=== PATIENT | female | born 1975 | race Caucasian/White ===

== ENCOUNTER 2020-05-07 14:00 | Outpatient (RCR) | payer OTHER, SELFPAY | END 2020-05-09 23:55 | disposition home or self-care (01) | LOC: HO.PAOS 14:00 | PROVIDERS: Visit Provider Counselor Mental Health | DX: F33.1 Major depressive disorder, recurrent, moderate (principal); F90.2 Attention-deficit hyperactivity disorder, combined type; F60.3 Borderline personality disorder | CPT/HCPCS: 90834 ==

== ENCOUNTER → 2020-08-16 09:02 | Outpatient (BNVA) | payer OTHER, SELFPAY | PROVIDERS: PCP Internal Medicine; Visit Provider Nurse Practitioner Family | DX: M54.16 Radiculopathy, lumbar region (principal); G90.50 Complex regional pain syndrome I, unspecified | CPT/HCPCS: 99202 ==

== ENCOUNTER 2020-08-16 10:59 | Outpatient (REF) | payer OTHER, SELFPAY ==
[2020-08-16 13:39] LABS: MANUAL DIFF FLAG NO
[2020-08-16 13:41] LABS: Basophils Percent Auto 0.3 % (0-2); Eosinophils Percent Auto 0.1 % (0-4); Hematocrit 40.2 % (37-47); Hemoglobin 13.9 g/dl (12.0-16.0); Imm Gran Abs Auto 0.02 X10*3/uL (0.00-0.03); Imm Gran Pct Auto 0.2 % (0.0-0.4); Lymphocytes Absolute Auto 3.1 X10*3/uL (1.2-4.9); Lymphocytes Percent Auto 31.4 % (20-40); Mean Corpuscular HGB Conc 34.6 g/dl (31.0-35.0); Mean Corpuscular Hemoglobin 31.7 pg (27.0-33.0); Mean Corpuscular Volume 91.6 fL (80-98); Mean Platelet Volume 9.4 fL (9.4-12.3); Monocytes Absolute Auto 0.6 X10*3/uL (0.1-1.2); Monocytes Percent Auto 5.9 % (2-11); Neutrophils Absolute Auto 6.1 X10*3/uL (2.0-8.3); Neutrophils Percent Auto 62.1 % (45-73); Platelet Count 335 X10*3/uL (160-400); Red Blood Count 4.39 X10*6/uL (4.20-5.50); White Blood Count 9.8 X10*3/uL (4.8-10.8)
[2020-08-16 14:08] LABS: Glucose Urine UA NEG (NEG); Leukocyte Esterase Urine NEG (NEG); Nitrite Urine NEG (NEG); PH 6.5 (5.0-8.0); Urine Blood TRACE (NEG); Urine Ketones 5 MG/DL (NEG); Urine Protein NEG (NEG-TRACE)
[2020-08-16 14:16] LABS: Alanine Aminotransferase 14 U/L (0-31); Albumin Level 5.1 g/dL (3.5-5.0); Alkaline Phosphatase 50 U/L (39-117); Anion Gap 16 (12-20); Aspartate Amino Transferase 15 U/L (5-31); Bilirubin Total 0.8 mg/dL (0.0-1.0); Blood Urea Nitrogen 10 mg/dL (9-16); Calcium 9.6 mg/dL (8.4-10.2); Carbon Dioxide 25 mmol/L (22-29); Chloride 102 mmol/L (96-108); Estimated Glomerular Filt Rate > 60; Glucose Random 104 mg/dL (60-115); Potassium 3.8 mmol/L (3.3-5.1); Sodium 139 mmol/L (135-145); Total Protein 7.5 g/dL (6.5-8.0)
[2020-08-16 14:17] LABS: Appearance Urine HAZY; Color Urine YELLOW
[2020-08-16 14:40] LABS: Vitamin B12 491 pg/mL (200-900)
[2020-08-16 14:42] LABS: Squamous Epithelial Cell Urine 1+ /LPF; WBC Urine 0-2 /HPF (0-4)
== END 2020-08-16 11:00 | disposition home or self-care (01) ==
LOC: HO.10HDL 10:59
PROVIDERS: Visit Provider Internal Medicine
DX: E53.8 Deficiency of other specified B group vitamins (principal); Z87.442 Personal history of urinary calculi
CPT/HCPCS: 36415; 80053; 81001; 81003; 82607; 85025

== ENCOUNTER 2020-09-10 06:27 | Outpatient (REF) | payer OTHER, SELFPAY ==
--- NOTE | ~2020-09-10 | FL_ITS ---
EXAMINATION: XR FLUOROSCOPY WITH IMAGES CLINICAL INFORMATION: 54.16 - Radiculopathy, lumbar region COMPARISON: MRI lumbar spine 02/13/2020, CT abdomen and pelvis 02/13/2020 TECHNIQUE: Fluoroscopy performed by Kandis Fisher NP. Fluoroscopy time: 0.6 minutes DAP: 1.83 Gycm2 Images: 2 FINDINGS: There is a spinal needle overlying the outer aspect right L5-S1 neural foramen. There is contrast in the nerve sheaths with transforaminal epidural extension. Numerous metallic spring tacks overlie the abdomen from prior ventral hernia repair with mesh. FL/FL guidance in treatment room IMPRESSION: Fluoroscopy for pain management procedure.
== END 2020-09-10 06:28 | disposition home or self-care (01) ==
LOC: HO.RADIR 06:27
PROVIDERS: Visit Provider Anesthesiology
DX: M54.16 Radiculopathy, lumbar region (principal); G90.50 Complex regional pain syndrome I, unspecified
CPT/HCPCS: 64483; J3300; Q9967

== ENCOUNTER → 2020-10-14 10:31 | Outpatient (BNVA) | payer OTHER, SELFPAY | PROVIDERS: PCP Internal Medicine; Visit Provider Anesthesiology | DX: M79.676 Pain in unspecified toe(s) (principal) | CPT/HCPCS: 99211 ==

== ENCOUNTER → 2020-11-04 10:50 | Outpatient (BNVA) | payer OTHER, SELFPAY | PROVIDERS: PCP Internal Medicine; Visit Provider Anesthesiology | DX: M54.16 Radiculopathy, lumbar region (principal); G90.50 Complex regional pain syndrome I, unspecified | CPT/HCPCS: 99212 ==

== ENCOUNTER 2020-11-23 00:23 | Emergency (ER) | payer OTHER, SELFPAY ==
[2020-11-23 00:34] VITALS: BP 136/72; PULSE 94; RESP 18; TEMP 36.8; O2SAT 96; BMI 24.7
[2020-11-23] MEDS: Diphth,Pertus(ACell),Tet Adult 0.5 ML SYRINGE IM (01:00)
--- NOTE | 2020-11-23 01:16 | ED.WOUNDLAC ---
HPI - Wound/Laceration General Chief Complaint: Wound/Laceration Stated Complaint: Laceration Time Seen by Provider: 11/23/20 00:49 Source: patient Mode of arrival: ambulatory Limitations: no limitations History of Present Illness HPI narrative: States she was cleaning ceramic tile floor and caused injury bilateral hands from scrubbing Tool. Onset (ago): minute(s) Extremity Location: right: hand Place: home Patient tetanus UTD: No Related Data Home Medications Medication Instructions Recorded Confirmed biotin 10,000 mcg capsule 10,000 mcg PO DAILY cap 08/16/20 10/14/20 clonazepam 0.5 mg tablet 0.5 mg PO TID PRN 08/16/20 10/14/20 dextroamphetamine-amphetamine 20 1 tab PO TID 08/16/20 10/14/20 mg tablet diphenhydramine 25 2 tab PO BEDTIME PRN 08/16/20 10/14/20 mg-acetaminophen 500 mg tablet gabapentin 300 mg capsule 300 mg PO DAILY 08/16/20 10/14/20 melatonin 5 mg capsule 5 mg PO .hs cap 08/16/20 10/14/20 vortioxetine 20 mg tablet 20 mg PO QAM 08/16/20 10/14/20 Previous Rx's Medication Instructions Recorded tizanidine 4 mg tablet 4 mg PO TID PRN #90 tab 11/04/20 Allergies Allergy/AdvReac Type Severity Reaction Status Date / Time Sulfa (Sulfonamide Allergy Intermediate HIVES Unverified 11/23/20 00:37 Antibiotics) [SULFA (SULFONAMIDE ANTIBIOTICS)] erythromycin base Allergy Mild HIVES Unverified 11/23/20 00:37 [Erythromycin Base] lamotrigine [From Lamictal] Allergy Mild BLISTERS Unverified 11/23/20 00:37 latex [Latex] Allergy Mild HIVES Unverified 11/23/20 00:37 strawberry [STRAWBERRY] Allergy Unknown HIVES, Unverified 11/23/20 00:37 TONGUE SWELLS nortriptyline AdvReac Severe tachycardia Verified 11/23/20 00:37 Review of Systems Review of Systems: Otherwise 12 point review of system is negative Yes all other systems are reviewed and are negative PMFSH Social History Social History Advance Directives: Yes Advance Directives on File: No Patient : No Physical Exam Vital Signs: Vital Signs: Last Vital Signs Temp 98 F 11/23/20 01:40 Pulse 70 11/23/20 01:40 Resp 16 11/23/20 01:40 BP 127/70 11/23/20 01:40 Pulse Ox 98 11/23/20 01:40 Body Mass Index 24.7 Reviewed Const: General: cooperative and healthy appearing; No acute distress or intoxicated appearing Nutritional Appearance: average body habitus Orientation/consciousness: patient oriented x3 Eyes: General: appearance normal, both eyes and all related structures Visual Jade: normal visual jade by confrontation Skin: General skin exam: no rashes or lesions noted Neuro: General: patient oriented x3 Extrem: General: Yes normal to inspection Hand/finger images: 1. Small friction type abrasion 2. Small friction type abrasion Course Course Course Narrative: Given tetanus vaccination per request. Otherwise home care for abrasion return follow-up instructions provided. Stable for discharge. Discharge Plan Discharge Clinical Impression: Abrasion Patient Disposition: Home, Self-Care Instructions: Abrasion (ED), Tetanus (ED) Prescriptions: No Action clonazepam 0.5 mg tablet 0.5 mg PO TID PRNRF: 0 dextroamphetamine-amphetamine 20 mg tablet 1 tab PO TID RF: 0 Trintellix 20 mg tablet 20 mg PO QAM RF: 0 gabapentin 300 mg capsule 300 mg PO DAILY RF: 0 biotin 10,000 mcg capsule 10,000 mcg PO DAILY RF: 0 diphenhydramine-acetaminophen [Tylenol PM Extra Strength] 25-500 mg tablet 2 tab PO BEDTIME PRNRF: 0 melatonin 5 mg capsule 5 mg PO .hs RF: 0 tizanidine 4 mg tablet 4 mg PO TID PRN (Reason: muscle spasticity) Qty: 90 RF: 12 Referrals: John Gil MD [Primary Care Provider] - 1 week Discharge Date/Time: 11/23/20 01:41
[2020-11-23 01:40] VITALS: BP 127/70; PULSE 70; RESP 16; TEMP 36.6; O2SAT 98
== END 2020-11-23 01:41 | disposition home or self-care (01) ==
PROVIDERS: Emergency Provider Emergency Medicine; PCP Internal Medicine
DX: S60.512A Abrasion of left hand, initial encounter (principal); S60.511A Abrasion of right hand, initial encounter; W27.8XXA Contact with other nonpowered hand tool, initial encounter; Y93.9 Activity, unspecified; Y92.9 Unspecified place or not applicable; Y99.9 Unspecified external cause status
CPT/HCPCS: 90471; 90715; 99283; 99284

== ENCOUNTER 2021-03-12 14:00 | Outpatient (RCR) | payer OTHER, SELFPAY ==
--- NOTE | 2021-02-12 15:22 | MHC.PT.EP ---
[facility] [place] Office [place] Office [address] Joseph Kyle [address] [phone] F: [phone] F: [phone] F: [phone] F: [phone] Physical Therapy Plan of Care Date of Evaluation: Date of Surgery: Diagnosis: CRPS, lumbar radiculopathy Assessment: The patient was a wonderful historian and described a complicated medical history in the last 3 years. She arrived today with decreased ROM in right ankle and foot, CRPS in right foot, and back pain. She has a history of weakness in her core due to several abdominal surgeries. The patient suffers from severe mental health issues such as anxiety and depression and she is being followed by a Psychiatrist and Mental Health Counselor. The patient will benefit from skilled PT to address, LE weakness, lack of proprioception, balance, core strength, postural awareness, to improve body mechanics, and lifting mechanics to help her with independent living. Frequency and Duration: The patient will be seen 2x/week x 4 weeks. Short Term Goals: 2 weeks 1.Pt to able to demonstrate proper sitting posture with the use of a lumbar roll to decrease aggravating factors. 2.Pt to be able to demonstrate proper posture for common leisure activities such as phone/tablet use. 3.For the patient to demonstrate proper upright sitting posture with use of the lumbar roll to improve compliance and carryover. 4. pt to tolerate light touch of cloth on her right lateral lower leg and foot. Mcc Goals: 1. Pt to be able to wear a textured sock without any pain 2. Pt to be able walk with a heel to toe reciprocal gait pattern without compensation 3. Pt to be able to perform functional lifting tasks without limitation and pain. 4. Pt to be able to do all ADL's independently Treatment Plan: Modalities to reduce pain, spasms and effusion. Manual therapy to restore motion and function. Therapeutic exercise to improve strength and flexibility. Neuromuscular re-education for posture and balance. Therapeutic activities to return to functional activities of daily living. Electronically signed by: Karen Calabrese PT DPT Please sign and return to therapist. Thank you for your referral.
== END 2021-03-14 08:00 | disposition home or self-care (01) ==
LOC: HO.PT 14:00
PROVIDERS: PCP Internal Medicine; Visit Provider Anesthesiology
DX: G90.50 Complex regional pain syndrome I, unspecified (principal); M54.16 Radiculopathy, lumbar region
CPT/HCPCS: 97110; 97112; 97140; 97163

== ENCOUNTER → 2021-04-09 15:57 | Outpatient (BNVA) | payer OTHER, SELFPAY | PROVIDERS: PCP Internal Medicine; Visit Provider Anesthesiology | DX: M54.16 Radiculopathy, lumbar region (principal); G90.50 Complex regional pain syndrome I, unspecified; Z91.040 Latex allergy status; Z88.2 Allergy status to sulfonamides; Z88.8 Allergy status to other drugs, medicaments and biological substances; Z91.018 Allergy to other foods; Z79.899 Other long term (current) drug therapy | CPT/HCPCS: 99212 ==

== ENCOUNTER 2021-05-19 12:53 | Outpatient (REF) | payer OTHER, SELFPAY ==
[2021-05-19 14:52] LABS: Appearance Urine HAZY; Color Urine YELLOW; Glucose Urine UA NEG (NEG); Leukocyte Esterase Urine NEG (NEG); Nitrite Urine NEG (NEG); PH 6.5 (5.0-8.0); Urine Blood NEG (NEG); Urine Ketones NEG (NEG); Urine Protein NEG (NEG-TRACE)
[2021-05-19 14:53] LABS: MANUAL DIFF FLAG NO
[2021-05-19 14:59] LABS: Basophils Absolute Auto 0.1 X10*3/uL (0.0-0.2); Basophils Percent Auto 0.5 % (0-2); Eosinophils Percent Auto 0.4 % (0-4); Hematocrit 40.8 % (37.0-47.0); Hemoglobin 13.7 g/dl (12.0-16.0); Imm Gran Abs Auto 0.02 X10*3/uL (0.00-0.03); Imm Gran Pct Auto 0.2 % (0.0-0.4); Lymphocytes Absolute Auto 2.9 X10*3/uL (1.2-4.9); Lymphocytes Percent Auto 30.2 % (20-40); Mean Corpuscular HGB Conc 33.6 g/dl (31.0-35.0); Mean Corpuscular Hemoglobin 31.4 pg (27.0-33.0); Mean Corpuscular Volume 93.6 fL (80.0-98.0); Mean Platelet Volume 8.9 fL (9.4-12.3); Monocytes Absolute Auto 0.5 X10*3/uL (0.1-1.2); Monocytes Percent Auto 5.7 % (2-11); Platelet Count 409 X10*3/uL (160-400); Red Blood Count 4.36 X10*6/uL (4.20-5.50); Red Cell Distribution Width 12.1 % (11.0-16.0); White Blood Count 9.5 X10*3/uL (4.8-10.8)
[2021-05-19 15:23] LABS: Alanine Aminotransferase 23 U/L (0-31); Albumin Level 4.8 g/dL (3.5-5.0); Alkaline Phosphatase 57 U/L (39-117); Anion Gap 15 (12-20); Aspartate Amino Transferase 19 U/L (5-31); Bilirubin Total 0.4 mg/dL (0.0-1.0); Blood Urea Nitrogen 11 mg/dL (9-16); C Reactive Protein 0.39 mg/dL (< or = 0.50); Calcium 9.8 mg/dL (8.4-10.2); Carbon Dioxide 23 mmol/L (22-29); Chloride 104 mmol/L (96-108); Cholesterol 245 mg/dL; Estimated Glomerular Filt Rate > 60; Glucose Random 99 mg/dL (60-115); HDL Cholesterol 51 mg/dL; LDL Cholesterol Calculated 165 mg/dl; Potassium 4.3 mmol/L (3.3-5.1); Sodium 138 mmol/L (135-145); Total Protein 7.7 g/dL (6.5-8.0); Triglycerides 146 mg/dL
[2021-05-19 15:52] LABS: Vitamin B12 664 pg/mL (200-900)
== END 2021-05-19 12:54 | disposition home or self-care (01) ==
LOC: HO.10HDL 12:53
PROVIDERS: Visit Provider Internal Medicine
DX: M54.10 Radiculopathy, site unspecified (principal); Z87.442 Personal history of urinary calculi
CPT/HCPCS: 36415; 80053; 80061; 81003; 82607; 85025; 86140; 87086

== ENCOUNTER 2021-12-11 22:43 | Emergency (ER) | payer MEDICARE, MEDICAID, SELFPAY ==
--- NOTE | ~2021-12-11 | CT_ITS ---
EXAMINATION: CT abdomen pelvis wo con CLINICAL INFORMATION: Reason for Exam left side abd pain COMPARISON: No prior CT available for comparison. TECHNIQUE: Multidetector volumetric imaging was performed from the superior aspect of the liver through the pubic symphysis , noncontrasted study. Sagittal and coronal reformatted images were obtained on the technologist's workstation. This CT examination was performed using dose optimization techniques as appropriate, variously including the following: *Automated exposure control *Adjustment of mA and/or kV according to patient size (this includes techniques or standardized protocols for targeted exams where dose is matched to indication/reason for exam; i.e. extremities or head) *Use of iterative reconstruction technique DLP: 434 mGy-cm FINDINGS: LOWER THORAX: Included lung bases are clear. HEPATOBILIARY: Small cyst in the right lobe of the liver measure 0.9 cm. Evaluation of the liver is limited on a noncontrasted study. GALLBLADDER: Gallbladder unremarkable. SPLEEN: Spleen is normal in size. PANCREAS: No focal mass or ductal dilatation. STOMACH AND GASTROINTESTINAL TRACT: Stomach is grossly unremarkable. Anastomosis line in the sigmoid colon probably prior partial resection. Evaluation of the bowel is limited on this noncontrasted study, no evidence of obstruction. No CT evidence of appendicitis. ADRENALS: No adrenal nodules. KIDNEYS/URETERS: There is left renal hydronephrosis, transition of the ureteropelvic junction, no calcified obstructing stone found. This could be congenital, or due to crossing vessel slightly more prominent than previously seen on prior CT scan from 02/13/2020, no obstructing stone found. There is nonobstructing 5 mm stone lower calyx left kidney. There is nonobstructing 1 mm stone right kidney. Perinephric fat are clear. URINARY BLADDER: Urinary bladder evaluation is limited, the bladder is partially decompressed unopacified. No stones in the bladder. PELVIC VISCERA: There are pelvic vascular calcification phleboliths. There is a fluid-filled cystic structure in the right adnexa probably ovarian cyst 3.8 x4.5 cm cm. PERITONEUM: No free air or fluid. LYMPH NODES: No lymphadenopathy. VASCULAR:Abdominal aorta normal in size, no aneurysm found. BONES, ABDOMINAL WALL AND SOFT TISSfacet joints arthropathy and degenerative disc disease lower lumbar spine, grade 1 anterior spondylolisthesis of L5 on S1, postsurgical changes anterior abdominal wall hernia repair. CT/CT abdomen pelvis wo con IMPRESSION: *Fullness of the left renal pelvis, mild left renal hydronephrosis slightly more prominent on today's exam with a transition at the UPJ, no obstructing stone found , this could be congenital, developmental or due to crossing vessel, probably chronic been present on prior CT exams. *There is 5 mm nonobstructing stone lower calyx left kidney, there is a tiny 1 mm stone right kidney. *There is a solid round 3.4 cm structure in the anterior pelvis right of midline, this exhibits intense enhancement on prior CT from January 2020 and has not changed, this may represent a pedunculated fibroid versus other soft tissue neoplasms. This been present on multiple prior CTs back to October 2018. Consider correlation with ultrasound for confirmation. *Other findings unchanged including an anastomosis line sigmoid colon, anterior abdominal wall hernia repair, pelvic right adnexal 4.5 cm cyst probably of right ovarian origin, small liver cyst, grade 1 anterior spondylolisthesis of L5 on S1, facet joints arthropathy and degenerative disc disease lower lumbar spine.
[2021-12-11 22:57] VITALS: BP 165/95; PULSE 85; RESP 16; TEMP 37.2; O2SAT 98; BMI 24.7
[2021-12-11 23:20] LABS: Basophils Percent Auto 0.2 % (0-2); Eosinophils Absolute Auto 0.2 X10*3/uL (0.0-0.4); Eosinophils Percent Auto 1.3 % (0-4); Hematocrit 39.1 % (37.0-47.0); Hemoglobin 13.2 g/dl (12.0-16.0); Imm Gran Abs Auto 0.05 X10*3/uL (0.00-0.03); Imm Gran Pct Auto 0.4 % (0.0-0.4); Lymphocytes Absolute Auto 3.2 X10*3/uL (1.2-4.9); Lymphocytes Percent Auto 26.5 % (20-40); MANUAL DIFF FLAG NO; Mean Corpuscular HGB Conc 33.8 g/dl (31.0-35.0); Mean Corpuscular Hemoglobin 30.6 pg (27.0-33.0); Mean Corpuscular Volume 90.7 fL (80.0-98.0); Mean Platelet Volume 8.7 fL (9.4-12.3); Monocytes Absolute Auto 0.8 X10*3/uL (0.1-1.2); Monocytes Percent Auto 6.6 % (2-11); Neutrophils Absolute Auto 7.9 x10*3/uL (2.0-8.3); Platelet Count 313 X10*3/uL (160-400); Red Blood Count 4.31 X10*6/uL (4.20-5.50); Red Cell Distribution Width 12.4 % (11.0-16.0); White Blood Count 12.2 X10*3/uL (4.8-10.8)
[2021-12-11 23:26] LABS: Appearance Urine CLEAR; Color Urine YELLOW; Glucose Urine UA NEG (NEG); Leukocyte Esterase Urine NEG (NEG); Nitrite Urine NEG (NEG); PH 6.5 (5.0-8.0); Specific Gravity - Urine 1.015 (1.005-1.025); Urine Blood NEG (NEG); Urine Ketones NEG (NEG); Urine Protein NEG (NEG-TRACE)
[2021-12-11 23:40] LABS: Alanine Aminotransferase 23 U/L (0-31); Albumin Level 4.9 g/dL (3.5-5.0); Alkaline Phosphatase 53 U/L (39-117); Anion Gap 14 (12-20); Aspartate Amino Transferase 17 U/L (5-31); Bilirubin Direct 0.2 mg/dL (0.0-0.5); Bilirubin Total 0.5 mg/dL (0.0-1.0); Blood Urea Nitrogen 19 mg/dL (9-16); Calcium 9.6 mg/dL (8.4-10.2); Carbon Dioxide 26 mmol/L (22-29); Chloride 102 mmol/L (96-108); Creatinine Clr Calc Pharmacy 73.7; Estimated Glomerular Filt Rate > 60; Glucose Random 104 mg/dL (60-115); Lipase 21 U/L (8-78); Potassium 3.9 mmol/L (3.3-5.1); Sodium 138 mmol/L (135-145); Total Protein 7.4 g/dL (6.5-8.0)
--- NOTE | 2021-12-12 06:58 | ED.ABDPAIN ---
HPI - Abdominal Pain General Chief Complaint: Abdominal Pain Stated Complaint: ? kidney infection Time Seen by Provider: 12/12/21 05:32 Source: patient Mode of arrival: ambulatory Limitations: no limitations History of Present Illness HPI narrative: 46-year-old female came in for evaluation of left-sided abdominal pain. Pain started since Wednesday 7 days ago, pain started to the left flank then became to the bilateral flank area now is localized to the left flank, radiates to the left lower abdominal area, pain described as crampy and intermittent, pain is similar to patient's previous pain when she has a kidney stones, patient thought that is she is passing stones. Pain is associated with nausea and vomiting, normal bowel movement with passing gas, no aggravating factor, no relieving factors. No fever chills. Patient had a history of diverticular disease with perforated viscus require surgical colectomy and colostomy, patient states that her last bowel movement was this morning with normal passing flatus. Patient had a history of kidney stones and seems like kidney stones. Related Data Home Medications Medication Instructions Recorded Confirmed biotin 10,000 mcg capsule 10,000 mcg PO DAILY 08/16/20 04/09/21 clonazepam 0.5 mg tablet 0.5 mg PO TID PRN 08/16/20 04/09/21 dextroamphetamine-amphetamine 20 1 tab PO TID 08/16/20 04/09/21 mg tablet diphenhydramine 25 2 tab PO BEDTIME PRN 08/16/20 04/09/21 mg-acetaminophen 500 mg tablet (Tylenol PM Extra Strength) gabapentin 300 mg capsule 300 mg PO DAILY 08/16/20 04/09/21 melatonin 5 mg capsule 5 mg PO .hs 08/16/20 04/09/21 vortioxetine 20 mg tablet 20 mg PO QAM 08/16/20 04/09/21 Previous Rx's Medication Instructions Recorded tizanidine 4 mg tablet 4 mg PO TID PRN muscle spasticity 11/14/21 #90 tabs Allergies Allergy/AdvReac Type Severity Reaction Status Date / Time Sulfa (Sulfonamide Allergy Intermediate HIVES Unverified 04/09/21 17:00 Antibiotics) [SULFA (SULFONAMIDE ANTIBIOTICS)] erythromycin base Allergy Mild HIVES Unverified 04/09/21 17:00 [Erythromycin Base] lamotrigine [From Lamictal] Allergy Mild BLISTERS Unverified 04/09/21 17:00 latex [Latex] Allergy Mild HIVES Unverified 04/09/21 17:00 strawberry [STRAWBERRY] Allergy Unknown HIVES, Unverified 04/09/21 17:00 TONGUE SWELLS nortriptyline AdvReac Severe tachycardia Verified 04/09/21 17:00 Review of Systems Review of Systems All other systems are reviewed and are negative Constitutional: Reports as per HPI and Reports no additional constitutional complaints Eyes: Reports as per HPI and Reports no additional eye complaints Reports system reviewed and no additional complaints, except as documented Cardiovascular: Reports as per HPI and Reports no additional cardiovascular complaints Respiratory: Reports as per HPI and Reports no additional respiratory complaints Gastrointestinal: Reports as per HPI and Reports no additional gastrointestinal complaints Genitourinary: Reports no additional female genitourinary complaints Musculoskeletal: Reports no additional musculoskeletal complaints Skin/Breast: Reports system reviewed and no additional complaints, except as docu Psychiatric: Reports no additional psychiatric complaints Endocrine: Reports no additional endocrine complaints Hematologic/Lymphatic: Reports no additional hematologic/lymphatic complaints Allergic/Immunologic: Reports no additional allergic/immunologic complaints Reports system reviewed and no additional complaints, except as documented and Reports Abnormal speech present [facility] Social History Social History Advance Directives: No Physical Exam ED Vital Signs: Vital Signs - 24 hr 12/11/21 22:57 Temperature 98.9 F Pulse Rate 85 Respiratory Rate 16 Blood Pressure 165/95 H Pulse Oximetry 98 Oxygen Delivery Method Room Air BMI result Body Mass Index 24.7 Vital signs have been reviewed as appeared to be correct. Blood pressure normal. Heart rate normal. Respiration rate normal. Temperature normal. Oxygen saturation normal. Appearance: Alert. Oriented X3. No acute distress. Head: Normal external exam. Normocephalic. Atraumatic. No Kline signs noted. No raccoon eyes noted Eyes: PERRLA. EOMI. Conjunctiva and sclera normal. Eyelids normal. ENT: TM's Normal. Pharynx normal. Uvula midline. Moist mucous membranes. No trismus noted. No drooling noted. No muffled voice noted. Neck: Normal inspection. Neck supple. FROM. No adenopathy. Thyroid Normal. No meningeal signs. No neck mass noted. CVS: Normal heart rate and rhythm. Heart sound normal. No murmurs noted. Pulses normal throughout. Respiratory: No respiratory distress. Painless inspiration. Breath sounds normal. No wheezes/rales/rhonchi noted. Chest nontender. No accessory muscle usage noted or decreased air movement noted. Abdomen: Soft and nontender. Bowel sounds normal in all 4 quadrants. No distention noted. No organomegaly noted. No visible injury noted. Back: No CVA tenderness. Full range of motion noted. Skin: Skin warm and dry. Normal skin color. Normal skin turgor. No rashes/lesions/lacerations noted. Extremities: No lower extremity edema. Extremities exhibit normal range of motion. Extremities nontender. Neuro: Oriented X 3. Cranial nerve exam: II-XII are grossly intact No motor deficit. No sensory deficit. Reflexes normal. Course Course Course Narrative: 46-year-old female came in for left flank/abdominal pain with hematuria similar to her previous kidney stones in the past, patient also had a complicated diverticular disease with complicated perforation in the past which granted CT abdomen and pelvis today. Patient unfortunately is unhappy with the long wait in the ED. Patient left without full evaluation and before the CT to be reported. MDM - Abdominal Pain Lab Data Attestation: I reviewed the patient's lab results. Result diagrams: 12/11/21 23:13 12/11/21 23:14 Labs: Lab Results 12/11/21 12/11/21 12/11/21 Range/Units 23:13 23:14 23:14 WBC 12.2 H (4.8-10.8) X10*3/uL RBC 4.31 (4.20-5.50) X10*6/uL Hgb 13.2 (12.0-16.0) g/dl Hct 39.1 (37.0-47.0) % MCV 90.7 (80.0-98.0) fL MCH 30.6 (27.0-33.0) pg MCHC 33.8 (31.0-35.0) g/dl RDW 12.4 (11.0-16.0) % Plt Count 313 (160-400) X10*3/uL MPV 8.7 L (9.4-12.3) fL Immature Gran % (Auto) 0.4 (0.0-0.4) % Neut % (Auto) 65.0 (45-73) % Lymph % (Auto) 26.5 (20-40) % [place] % (Auto) 6.6 (2-11) % Eos % (Auto) 1.3 (0-4) % Baso % (Auto) 0.2 (0-2) % Lymph # (Auto) 3.2 (1.2-4.9) X10*3/uL [place] # (Auto) 0.8 (0.1-1.2) X10*3/uL Eos # (Auto) 0.2 (0.0-0.4) X10*3/uL Baso # (Auto) 0.0 (0.0-0.2) X10*3/uL Abs Immat Gran (auto) 0.05 H (0.00-0.03) X10*3/uL Absolute Neuts (auto) 7.9 (2.0-8.3) x10*3/uL Absolute Nucleated RBC 0.000 (0.0-0.012) X10*3/uL Nucleated RBC % (auto) 0.0 (0.0-0.2) /100WBC Sodium 138 (135-145) mmol/L Potassium 3.9 (3.3-5.1) mmol/L Chloride 102 (96-108) mmol/L Carbon Dioxide 26 (22-29) mmol/L Anion Gap 14 (12-20) BUN 19 H D (9-16) mg/dL Creatinine 0.83 (0.5-1.4) mg/dL Estim Creat Clear Calc 73.7 Estimated GFR > 60 Random Glucose 104 (60-115) mg/dL Calcium 9.6 (8.4-10.2) mg/dL Total Bilirubin 0.5 (0.0-1.0) mg/dL Direct Bilirubin 0.2 (0.0-0.5) mg/dL AST 17 (5-31) U/L ALT 23 (0-31) U/L Alkaline Phosphatase 53 (39-117) U/L Total Protein 7.4 (6.5-8.0) g/dL Albumin 4.9 (3.5-5.0) g/dL Lipase 21 (8-78) U/L Beta HCG, Quant < 2 mIU/mL Urine Color YELLOW Urine Appearance CLEAR Urine pH 6.5 (5.0-8.0) Ur Specific [place] 1.015 (1.005-1.025) Urine Protein NEG (NEG-TRACE) MG/DL Urine Glucose (UA) NEG (NEG) MG/DL Urine Ketones NEG (NEG) MG/DL Urine Blood NEG (NEG) Urine Nitrite NEG (NEG) Ur Leukocyte Esterase NEG (NEG) Discharge Plan Discharge Clinical Impression: Abdominal pain Patient Disposition: Home, Self-Care Instructions: Abdominal Pain (ED) Prescriptions: No Action tizanidine 4 mg tablet 4 mg PO TID PRN (Reason: muscle spasticity) Qty: 90 12RF clonazepam 0.5 mg tablet 0.5 mg PO TID PRN dextroamphetamine-amphetamine 20 mg tablet 1 tab PO TID Trintellix 20 mg tablet 20 mg PO QAM gabapentin 300 mg capsule 300 mg PO DAILY biotin 10,000 mcg capsule 10,000 mcg PO DAILY diphenhydramine-acetaminophen [Tylenol PM Extra Strength] 25-500 mg tablet 2 tab PO BEDTIME PRN melatonin 5 mg capsule 5 mg PO .hs Referrals: John Gil MD [Primary Care Provider] -
[2021-12-12 08:18] LABS: HCG Quantitative < 2 mIU/mL
== END 2021-12-12 11:15 | disposition left against medical advice (07) ==
PROVIDERS: Internal Medicine; Emergency Provider Emergency Medicine; PCP Internal Medicine
DX: R10.9 Unspecified abdominal pain (principal); Z79.899 Other long term (current) drug therapy; Z87.442 Personal history of urinary calculi
CPT/HCPCS: 36415; 74176; 80053; 81003; 82248; 83690; 84702; 85025; 99282; 99284

== ENCOUNTER 2022-01-21 14:46 | Outpatient (REF) | payer MEDICARE, MEDICAID, SELFPAY ==
--- NOTE | ~2022-01-21 | XR_ITS ---
EXAMINATION: XR RIBS, RIGHT CLINICAL INFORMATION: Right rib pain COMPARISON: Previous chest x-ray April 2018 TECHNIQUE: 3 views of the right ribs and one view of the chest were obtained. FINDINGS: Lungs are clear. No consolidation, pneumothorax, or pleural effusion. The cardiomediastinal silhouette and pulmonary vasculature are normal. Osseous structures are unremarkable. Ribs are intact. No fractures are identified. XR/XR ribs RT min 3V w CXR1V IMPRESSION: Unremarkable examination.
== END 2022-01-21 14:47 | disposition home or self-care (01) ==
LOC: HO.XRAY 14:46
PROVIDERS: PCP Internal Medicine; Visit Provider Internal Medicine
DX: R07.81 Pleurodynia (principal)
CPT/HCPCS: 71101

== ENCOUNTER 2022-08-28 11:39 | Outpatient (REF) | payer MEDICARE, MEDICAID, SELFPAY ==
--- NOTE | ~2022-08-28 | XR_ITS ---
EXAMINATION: XR SHOULDER, RIGHT CLINICAL INFORMATION: Pain unspecified COMPARISON: None available. TECHNIQUE: AP external rotation, Grashey, scapular Y, and axillary views of the right shoulder. FINDINGS: No fracture, dislocation or destructive process. No erosive change. XR/XR shoulder RT min 2V IMPRESSION: Unremarkable study.
== END 2022-08-28 11:40 | disposition home or self-care (01) ==
LOC: HO.HOSX 11:39
PROVIDERS: PCP Internal Medicine; Visit Provider Orthopaedic Surgery
DX: M75.41 Impingement syndrome of right shoulder (principal)
CPT/HCPCS: 20610; 73030; 99202; J1100

== ENCOUNTER 2022-10-08 09:36 | Outpatient (REF) | payer MEDICARE, MEDICAID, SELFPAY ==
--- NOTE | ~2022-10-08 | XR_ITS ---
EXAMINATION: XR KNEE AP STANDING CLINICAL INFORMATION: Knee pain COMPARISON: [place] and lateral views of right knee from 10/08/2022 TECHNIQUE: AP standing view both knees. FINDINGS: Tricompartmental osteophyte formation of the right knee. The articular cartilage spaces are maintained. There appears to be a 0.5 cm intra-articular osteochondral body within the posterior knee joint. No fracture or malalignment. Negligible marginal osteophyte formation of medial tibiofemoral compartment of left knee joint. No significant radiographic findings at the left knee. XR/XR knee standing BI IMPRESSION: Mild tricompartmental osteoarthritis of the right knee.
--- NOTE | ~2022-10-08 | XR_ITS ---
EXAMINATION: XR KNEE, RIGHT CLINICAL INFORMATION: Knee pain COMPARISON: None available. TECHNIQUE: 2 views of the right knee. FINDINGS: Lateral and sunrise view right knee reveals normal patellofemoral compartment joint space with no bony erosive changes. There is mild anterior and posterior tibial plateau enthesophytes. No loose bodies. No acute fracture or dislocation. There is a small right lateral patellar spurring. XR/XR knee RT 2V IMPRESSION: Mild degenerative enthesophytes along the patella and tibial plateau. No loose bodies, acute fracture or dislocation seen.
== END 2022-10-08 09:37 | disposition home or self-care (01) ==
LOC: HO.HOSX 09:36
PROVIDERS: Visit Provider Orthopaedic Surgery
DX: M17.11 Unilateral primary osteoarthritis, right knee (principal); M21.371 Foot drop, right foot
CPT/HCPCS: 20610; 73560; 73565; 99212; J1100

== ENCOUNTER 2023-09-07 10:56 | Outpatient (REF) | payer MEDICARE, MEDICAID, SELFPAY ==
[2023-09-07 11:13] LABS: MANUAL DIFF FLAG NO
[2023-09-07 11:48] LABS: Basophils Percent Auto 0.5 % (0-2); Eosinophils Percent Auto 0.4 % (0-4); Hematocrit 40.5 % (37.0-47.0); Hemoglobin 13.9 g/dl (12.0-16.0); Imm Gran Abs Auto 0.03 X10*3/uL (0.00-0.03); Imm Gran Pct Auto 0.4 % (0.0-0.4); Lymphocytes Absolute Auto 2.6 X10*3/uL (1.2-4.9); Lymphocytes Percent Auto 30.1 % (20-40); Mean Corpuscular HGB Conc 34.3 g/dl (31.0-35.0); Mean Corpuscular Hemoglobin 31.6 pg (27.0-33.0); Mean Platelet Volume 8.7 fL (9.4-12.3); Monocytes Absolute Auto 0.4 X10*3/uL (0.1-1.2); Monocytes Percent Auto 5.2 % (2-11); Neutrophils Absolute Auto 5.4 x10*3/uL (2.0-8.3); Neutrophils Percent Auto 63.4 % (45-73); Platelet Count 355 X10*3/uL (160-400); Red Cell Distribution Width 12.4 % (11.0-16.0); White Blood Count 8.5 X10*3/uL (4.8-10.8)
[2023-09-07 12:34] LABS: Appearance Urine Clear; Color Urine Yellow; Glucose Urine UA Negative (Negative); Leukocyte Esterase Urine Negative (Negative); Nitrite Urine Negative (Negative); PH 6.5 (5.0-9.0); Urine Blood Negative (Negative); Urine Ketones Negative (Negative); Urine Protein Negative (Neg-Trace)
[2023-09-07 12:46] LABS: Alanine Aminotransferase 19 U/L (0-31); Alkaline Phosphatase 57 U/L (39-117); Anion Gap 13 (12-20); Aspartate Amino Transferase 19 U/L (5-31); Bilirubin Total 0.3 mg/dL (0.0-1.0); Blood Urea Nitrogen 12 mg/dL (9-16); C Reactive Protein 0.21 mg/dL (< or = 0.50); Calcium 9.7 mg/dL (8.4-10.2); Carbon Dioxide 26 mmol/L (22-29); Chloride 105 mmol/L (96-108); Cholesterol 236 mg/dL (<200); Estimated Glomerular Filt Rate > 60; Glucose Random 103 mg/dL (60-115); Potassium 3.8 mmol/L (3.3-5.1); Sodium 140 mmol/L (135-145); Total Protein 7.9 g/dL (6.5-8.0); Vitamin D 25-OH Total 47.5 ng/mL (>30)
[2023-09-07 12:50] LABS: Rheumatoid Factor < 13.0 IU/mL (<15.0)
[2023-09-07 13:11] LABS: Vitamin B12 > 2000 pg/mL (200-900)
[2023-09-12 14:08] LABS: Anti Nuclear Antibody Pattern Nuclear, Nucleolar; Anti Nuclear Antibody Screen POSITIVE (NEGATIVE)
== END 2023-09-07 10:57 | disposition home or self-care (01) ==
LOC: HO.LAB 10:56
PROVIDERS: PCP Internal Medicine; Visit Provider Internal Medicine
DX: N20.0 Calculus of kidney (principal); K57.90 Diverticulosis of intestine, part unspecified, without perforation or abscess without bleeding; R30.0 Dysuria; M25.50 Pain in unspecified joint; Z93.3 Colostomy status
CPT/HCPCS: 36415; 80053; 81003; 82306; 82465; 82607; 85025; 86038; 86039; 86140; 86431; 87086

== ENCOUNTER 2024-01-03 14:11 | Outpatient (AMB) | payer MEDICARE, MEDICAID, SELFPAY ==
--- NOTE | 2024-01-03 14:18 | A.OFFVIS_ITS ---
Vital Signs 01/03/24 14:19 Height 5 ft 2 in Weight 130 lb BMI 23.8 Intake Visit Reasons: Newprob-right elbow pain-talk about treatment Intake Note: Anne is a 48 year old right hand dominant female who presents today for a new problem visit with complaints of right elbow pain. Patient reports that about 2+ months ago she had her arms above her head taking off her shirt while walking through a door jam and hit the inner aspect of the elbow on the door frame. She has had pain in the elbow since them worse with pressure. She explains that the pain is significant, she gets spasms of the elbow. She is not taking anything for her pain. Allergies Sulfa (Sulfonamide Antibiotics) [SULFA (SULFONAMIDE ANTIBIOTICS)] Allergy (Intermediate, Verified 01/03/24 14:22) HIVES erythromycin base [Erythromycin Base] Allergy (Mild, Verified 01/03/24 14:22) HIVES lamotrigine [From Lamictal] Allergy (Mild, Verified 01/03/24 14:22) BLISTERS latex [Latex] Allergy (Mild, Verified 01/03/24 14:22) HIVES strawberry [STRAWBERRY] Allergy (Unknown, Verified 01/03/24 14:22) HIVES, TONGUE SWELLS nortriptyline Adverse Reaction (Severe, Verified 01/03/24 14:22) tachycardia HPI HPI Newprob-right elbow pain-talk about treatment: Details: Anne is a 48 year old right hand dominant female who presents today for a new problem visit with complaints of right elbow pain. Patient reports that about 2+ months ago she had her arms above her head taking off her shirt while walking through a door jam and hit the inner aspect of the elbow on the door frame. She has had pain in the elbow since them worse with pressure. She explains that the pain is significant, she gets spasms of the elbow. She is not taking anything for her pain. [facility] Medical History (Updated 01/04/24 @ 09:56 by Carlos Keating MD) History of open sigmoidectomy (~2014) Surgical History (Updated 10/08/22 @ 10:58 by Lilliana Fry CMA) H/O right knee surgery History of ankle surgery Social History Patient Tobacco Use Status: Never used Tobacco Current occupational status: disabled Physical Exam Vital Signs: BMI result Body Mass Index 23.8 Extrem Other: TTP over the m,edial epicondyle and pain with resisted wrist flexion full rom and neg Tinel's at the cubital tunnel Assessment & Plan Assessment & Plan (1) Medial epicondylitis of right elbow: Code(s): M77.01 - Medial epicondylitis, right elbow Category: Medical Plan: Traumatic medial epicondylitis on the right. I explained the pathophysiology and the treatment options. She elected to try an elbow sleeve and activity modification. If this is not sufficiently helpful I would recommend OT and injection. She cannot tolerate NSAIDs Coding Level of Care Code Est Pt Level 3 (33203) Diagnoses Medial epicondylitis of right elbow M77.01
[2024-01-03 14:19] VITALS: BMI 23.8
== END 2024-01-03 16:00 ==
PROVIDERS: PCP Internal Medicine; Visit Provider Orthopaedic Surgery
DX: M77.01 Medial epicondylitis, right elbow (principal)
CPT/HCPCS: 99213

== ENCOUNTER → 2024-01-03 14:11 | Outpatient (BNVA) | payer MEDICARE, MEDICAID, SELFPAY | PROVIDERS: PCP Internal Medicine; Visit Provider Orthopaedic Surgery | DX: M77.01 Medial epicondylitis, right elbow (principal) | CPT/HCPCS: 99212 ==

== ENCOUNTER 2024-03-07 12:15 | Outpatient (REF) | payer MEDICARE, MEDICAID, SELFPAY ==
--- NOTE | ~2024-03-07 | XR_ITS ---
EXAMINATION: XR CHEST CLINICAL INFORMATION: Cough, history of colon COMPARISON: None available. TECHNIQUE: 2 views of the chest were obtained. FINDINGS: No significant abnormality is noted involving the heart, lungs, mediastinum, bony thorax or soft tissues. XR/XR chest 2V IMPRESSION: Unremarkable examination. Electronically signed by: Otilia Castillo MD 03/07/2024 05:03 PM EDT
== END 2024-03-07 12:16 | disposition home or self-care (01) ==
LOC: HO.XRAY 12:15
PROVIDERS: PCP Internal Medicine; Visit Provider Internal Medicine
DX: R05.9 Cough, unspecified (principal); R50.9 Fever, unspecified; Z86.16 Personal history of COVID-19
CPT/HCPCS: 71046

== ENCOUNTER 2024-03-07 13:12 | Emergency (ER) | payer MEDICARE, MEDICAID, SELFPAY ==
--- NOTE | 2024-03-07 | ECG_ITS ---
Test Reason : CP Blood Pressure : / mmHG Vent. Rate : 076 BPM Atrial Rate : 076 BPM P-R Int : 174 ms QRS Dur : 082 ms QT Int : 386 ms P-R-T Axes : 053 052 040 degrees QTc Int : 434 ms Normal sinus rhythm Normal ECG When compared with ECG of 17-AUG-2019 15:00, T wave inversion no longer evident in Inferior leads Referred By: Generic ED Physician Electronically Signed By:BHAVIN ALDRIDGE MD
[2024-03-07 13:30] LABS: MANUAL DIFF FLAG NO
[2024-03-07 13:33] LABS: Basophils Percent Auto 0.3 % (0-2); Eosinophils Percent Auto 0.3 % (0-4); Hemoglobin 12.8 g/dl (12.0-16.0); Imm Gran Abs Auto 0.01 X10*3/uL (0.00-0.03); Imm Gran Pct Auto 0.2 % (0.0-0.4); Lymphocytes Absolute Auto 2.3 X10*3/uL (1.2-4.9); Lymphocytes Percent Auto 37.3 % (20-40); Mean Corpuscular HGB Conc 34.6 g/dl (31.0-35.0); Mean Corpuscular Hemoglobin 31.2 pg (27.0-33.0); Mean Corpuscular Volume 90.2 fL (80.0-98.0); Mean Platelet Volume 8.2 fL (9.4-12.3); Monocytes Absolute Auto 0.4 X10*3/uL (0.1-1.2); Monocytes Percent Auto 6.5 % (2-11); Neutrophils Absolute Auto 3.4 x10*3/uL (2.0-8.3); Neutrophils Percent Auto 55.4 % (45-73); Platelet Count 228 X10*3/uL (160-400); Red Cell Distribution Width 12.3 % (11.0-16.0); White Blood Count 6.2 X10*3/uL (4.8-10.8)
[2024-03-07 13:44] VITALS: BP 154/100; PULSE 77; RESP 18; TEMP 36.3; O2SAT 99; BMI 24.3
[2024-03-07 13:48] LABS: Alanine Aminotransferase 39 U/L (0-31); Albumin Level 4.3 g/dL (3.5-5.0); Alkaline Phosphatase 89 U/L (39-117); Anion Gap 13 (12-20); Aspartate Amino Transferase 27 U/L (5-31); Bilirubin Total 0.3 mg/dL (0.0-1.0); Blood Urea Nitrogen 9 mg/dL (9-16); Calcium 9.6 mg/dL (8.4-10.2); Carbon Dioxide 25 mmol/L (22-29); Chloride 106 mmol/L (96-108); Estimated Glomerular Filt Rate > 60; Glucose Random 103 mg/dL (60-115); Potassium 3.3 mmol/L (3.3-5.1); Sodium 141 mmol/L (135-145); Total Protein 7.3 g/dL (6.5-8.0)
--- NOTE | 2024-03-07 13:52 | ED.GENADULT ---
HPI - General Adult General Chief complaint: Chest Pain Stated complaint: Chest pain, L arm pain Time Seen by Provider: 03/07/24 22:51 Source: patient Mode of arrival: ambulatory Limitations: no limitations History of Present Illness ED Provider: Dr. Kandis Evans HPI narrative: Patient comes to the emergency room complaining of chest pain left-sided back pain, shortness of breath. Patient states that several days ago she tested positive for COVID. Patient states that she does have history of asthma but at this time she is not wheezing and still feels short of breath. Complaining of subjective fever and chills. No nausea vomiting or diarrhea Related Data Home Medications ?Medication ?Instructions ?Recorded ?Confirmed biotin 10,000 mcg capsule 10,000 mcg PO DAILY 08/16/20 12/02/22 clonazepam 0.5 mg tablet 0.5 mg PO TID PRN 08/16/20 12/02/22 dextroamphetamine-amphetamine 20 1 tab PO TID 08/16/20 12/02/22 mg tablet diphenhydramine 25 2 tab PO BEDTIME PRN 08/16/20 12/02/22 mg-acetaminophen 500 mg tablet (Tylenol PM Extra Strength) melatonin 5 mg capsule 5 mg PO .hs 08/16/20 12/02/22 bupropion HCl 300 mg 24 hr tablet, 300 mg PO QAM 08/28/22 12/02/22 extended release Previous Rx's ?Medication ?Instructions ?Recorded tizanidine 4 mg tablet 4 mg PO TID PRN for muscle spasm 11/22/23 30 days #270 tabs Allergies Allergy/AdvReac Type Severity Reaction Status Date / Time Sulfa (Sulfonamide Allergy Intermediate HIVES Verified 03/07/24 13:50 Antibiotics) [SULFA (SULFONAMIDE ANTIBIOTICS)] erythromycin base Allergy Mild HIVES Verified 03/07/24 13:50 [Erythromycin Base] lamotrigine [From Lamictal] Allergy Mild BLISTERS Verified 03/07/24 13:50 latex [Latex] Allergy Mild HIVES Verified 03/07/24 13:50 strawberry [STRAWBERRY] Allergy Unknown HIVES, Verified 03/07/24 13:50 TONGUE SWELLS nortriptyline AdvReac Severe tachycardia Verified 03/07/24 13:50 Review of Systems Review of Systems: Constitutional : No Weight loss, No Fever, No Chills, No Night Sweats, No Fatigue, No Malaise ENT/Mouth : No Hearing loss, No Ear Pain, No Nasal Congestion, No Sinus Pain, No Hoarseness, No sore throat, No Rhinorrhea, No Swallowing Difficulty Eyes: No Eye Pain, No Swelling, No Redness, No Foreign Body, No Discharge, No Vision Changes Cardiovascular : Complaining of left-sided chest pain but mostly left-sided back pain with deep inspirations, No SOB, No Dyspnea on Exertion, No Orthopnea, No Edema, No Palpitations Respiratory : No Cough, No Sputum, No Wheezing, No Smoke Exposure, No Dyspnea Gastrointestinal : No Nausea, No Vomiting, No Diarrhea, No Constipation, No abdominal Pain, No Hematochezia, No Melena Genitourinary : no irregular bleeding, No Dysuria, No Urinary Frequency, No Hematuria, No Urinary Incontinence, No Urgency, No Flank Pain, No Urinary Flow Changes, No Hesitancy Musculoskeletal : No joint pain, No Myalgias, No Joint Swelling Skin : No Skin Lesions, No rash Neuro : No Weakness, No Numbness, No Paresthesias, No Loss of Consciousness, No Dizziness, No Headache Psych : No Anxiety/Panic, No Depression, No SI/HI/AH/VH, No Social Issues, Heme/Lymph: No Bruising, No Bleeding,No Lymphadenopathy Endocrine : No Polyuria, No Polydipsia, No Temperature Intolerance [facility] Past Medical History Medical History History of open sigmoidectomy (~2014) Surgical History (Updated 10/08/22 @ 10:58 by Lilliana Fry CMA) H/O right knee surgery History of ankle surgery Social History Social History Patient Tobacco Use Status: Never used Tobacco Advance Directives: No Advance Directives Information Provided: Yes Current occupational status: disabled Physical Exam ED Vital Signs: Vital Signs - 24 hr 03/07/24 13:44 03/07/24 21:23 03/07/24 23:05 Temperature 97.4 F 98.2 F 97.8 F Pulse Rate 77 93 81 Respiratory Rate 18 16 16 Blood Pressure 154/100 H 165/96 H 153/86 H Pulse Oximetry 99 98 98 Oxygen Delivery Method Room Air Room Air Room Air 03/07/24 23:39 03/07/24 23:58 Temperature 97.7 F Pulse Rate 67 Respiratory Rate 16 Blood Pressure 126/78 Pulse Oximetry 98 99 Oxygen Delivery Method Room Air BMI result Body Mass Index 24.3 Const Other: Appearance: Alert. Oriented X3. No acute distress. Eyes: Pupils equal, round and reactive to light. ENT: Pharynx normal. Neck: Normal inspection. Neck supple. No lymph nodes noted. No crepitus CVS: Normal heart rate and rhythm. Pulses normal. Normal S1 and S2 Respiratory: No respiratory distress. Breath sounds normal. No Wheezing. No rales Abdomen: Soft and nontender. No rigidity. No distention. Skin: Skin warm and dry. Normal skin color. Normal skin turgor. Extremities: No lower extremity edema. No Lacerations. No Rash Neuro: Oriented X 3. No motor deficit. No sensory deficit. Moving all extremities. No slurred speech. CN 2 through 12 grossly intact Psych: calm, cooperative, normal affect Course Course Course Narrative: RME: Done by FAUSTINO White. 48-year-old female tested positive for COVID last week presents to ED for left-sided chest pain, and shortness of breath. Patient is hypertensive. Patient states no history of high blood pressure. Bilateral lower extremity negative for swelling, pitting edema, or calf tenderness. Lungs are clear. EKG labs ordered. Chest x-ray ordered. HEN negative for any signs of trauma. Medications Administered Discontinued Medications Generic Name Dose Route Start Last Admin Trade Name Freq PRN Reason Stop Dose Admin Acetaminophen 975 mg 03/07/24 21:28 03/07/24 23:02 Acetaminophen 325 Mg Tablet PO 03/07/24 21:29 975 mg ONCE ONE Administration Medical Decision Making Medical Decision Making [facility] Narrative: -patient's vitals stable, oxygen saturation 100% on room air. My interpretation of labs, normal hematology, normal white blood cell count, normal chemistry, normal BNP, normal troponin, ETOH negative. Serology positive for COVID, negative for RSV and influenza, D-dimer negative My interpretation of chest x-ray: No obvious abnormality My interpretation of EKG: Normal sinus rhythm, heart rate 76, no ST segment depression or elevation, no T-wave inversion, QTC 434 -patient's oxygen saturation ambulating in her room did not drop below 95%. Patient ready for discharge Differential Diagnosis Differential Diagnoses: The differential diagnosis associated with the presentation includes (COVID, RSV, influenza, URI, pneumonia) Admission/Observation Consideration of admission/observation: Escalation of care including admission/observation considered (Given patient's labs symptoms, observation was considered) Lab Data MDM Lab Attestation statement: I reviewed the patient's lab results. 03/07/24 13:25 03/07/24 13:25 Labs: Lab Results 03/07/24 03/07/24 Range/Units 13:25 14:17 WBC 6.2 (4.8-10.8) X10*3/uL RBC 4.10 L (4.20-5.50) X10*6/uL Hgb 12.8 (12.0-16.0) g/dl Hct 37.0 (37.0-47.0) % MCV 90.2 (80.0-98.0) fL MCH 31.2 (27.0-33.0) pg MCHC 34.6 (31.0-35.0) g/dl RDW 12.3 (11.0-16.0) % Plt Count 228 D (160-400) X10*3/uL MPV 8.2 L (9.4-12.3) fL Immature Gran % (Auto) 0.2 (0.0-0.4) % Neut % (Auto) 55.4 (45-73) % Lymph % (Auto) 37.3 (20-40) % [place] % (Auto) 6.5 (2-11) % Eos % (Auto) 0.3 (0-4) % Baso % (Auto) 0.3 (0-2) % Lymph # (Auto) 2.3 (1.2-4.9) X10*3/uL [place] # (Auto) 0.4 (0.1-1.2) X10*3/uL Eos # (Auto) 0.0 (0.0-0.4) X10*3/uL Baso # (Auto) 0.0 (0.0-0.2) X10*3/uL Abs Immat Gran (auto) 0.01 (0.00-0.03) X10*3/uL Absolute Neuts (auto) 3.4 (2.0-8.3) x10*3/uL Absolute Nucleated RBC 0.000 (0.0-0.012) X10*3/uL Nucleated RBC % (auto) 0.0 (0.0-0.2) /100WBC PT 10.5 L (10.9-12.4) SEC INR 0.9 (0.9-1.1) APTT 32.3 (26.0-36.8) SEC D-Dimer High Sensitivty < 150 NG/ML Sodium 141 (135-145) mmol/L Potassium 3.3 (3.3-5.1) mmol/L Chloride 106 (96-108) mmol/L Carbon Dioxide 25 (22-29) mmol/L Anion Gap 13 (12-20) BUN 9 (9-16) mg/dL Creatinine 0.71 (0.5-1.4) mg/dL Estim Creat Clear Calc TNP Estimated GFR > 60 Random Glucose 103 (60-115) mg/dL Calcium 9.6 (8.4-10.2) mg/dL Total Bilirubin 0.3 (0.0-1.0) mg/dL AST 27 (5-31) U/L ALT 39 H (0-31) U/L Alkaline Phosphatase 89 (39-117) U/L Troponin I High Sens < 2.7 (<3.5-17.0) ng/L B-Natriuretic Peptide < 10 (<100) pg/mL Total Protein 7.3 (6.5-8.0) g/dL Albumin 4.3 (3.5-5.0) g/dL Influenza Type A (PCR) NEGATIVE (Negative) Influenza Type B (PCR) NEGATIVE (Negative) RSV RNA Qual (PCR) NEGATIVE (Negative) SARS-CoV-2 RNA (RT-PCR) POSITIVE A (Negative) Independent Interpretation I performed an independent interpretation of an: Plain X-Ray Radiology Impression Discussion of test interpretation with radiology: I have reviewed the radiologist's reading. Radiologist Impression: No significant abnormality is noted involving the heart, lungs, mediastinum, bony thorax or soft tissues. XR/XR chest 2V IMPRESSION: Unremarkable examination. Critical Care Time Critical Care Time Critical Care Time: Yes Total Critical Care Time: 35 Attestation: I have personally provided critical care time. Time includes review of lab data, radiology results, discussion with consultants, and monitoring for potential decompensation. Intervention performed as documented. Discharge Plan Discharge Clinical Impression: COVID-19 Patient Disposition: Home, Self-Care Instructions: COVID-19 (Coronavirus Disease 2019) (ED) Additional Instructions: Please follow-up with your primary care physician tomorrow. If you have any worsening or new symptoms, please return to the emergency room or call 911 Prescriptions: No Action tizanidine 4 mg tablet 4 mg PO TID PRN (Reason: for muscle spasm) 30 Days Qty: 270 4RF clonazepam 0.5 mg tablet 0.5 mg PO TID PRN dextroamphetamine-amphetamine 20 mg tablet 1 tab PO TID biotin 10,000 mcg capsule 10,000 mcg PO DAILY diphenhydramine-acetaminophen [Tylenol PM Extra Strength] 25-500 mg tablet 2 tab PO BEDTIME PRN melatonin 5 mg capsule 5 mg PO .hs bupropion HCl 300 mg tablet extended release 24 hr 300 mg PO QAM Interventions: ED Discharge Assessment Last Done: 03/07/24 23:58 Discharge Date/Time: 03/08/24 00:00 Print Language: Salvadorean
[2024-03-07 13:56] LABS: Troponin-I High Sensitivity < 2.7 ng/L (<3.5-17.0)
[2024-03-07 14:10] LABS: Influenza A PCR NEGATIVE (Negative); Influenza B PCR NEGATIVE (Negative); Resp Syncy Virus RNA Qual PCR NEGATIVE (Negative); SARS COV2 PCR INHOUSE POSITIVE (Negative)
[2024-03-07 14:21] LABS: B Type Natriuretic Peptide < 10 pg/mL (<100)
[2024-03-07 14:29] LABS: INTERNATIONAL NORM RATIO 0.9 (0.9-1.1); Prothrombin Time 10.5 SEC (10.9-12.4)
[2024-03-07 14:31] LABS: Partial Thromboplastin Time 32.3 SEC (26.0-36.8)
[2024-03-07 21:23] VITALS: BP 165/96; PULSE 93; RESP 16; TEMP 36.8; O2SAT 98
--- NOTE | 2024-03-07 22:05 | PC.NURSE ---
Adjusted acuity for current findings and presentation
[2024-03-07] MEDS: Acetaminophen 325 MG TABLET 975 MG PO (23:02)
[2024-03-07 23:05] VITALS: BP 153/86; PULSE 81; RESP 16; TEMP 36.6; O2SAT 98
[2024-03-07 23:09] LABS: D Dimer High Sensitivity < 150 NG/ML
[2024-03-07 23:39] VITALS: O2SAT 98
[2024-03-07 23:58] VITALS: BP 126/78; PULSE 67; RESP 16; TEMP 36.5; O2SAT 99
== END 2024-03-08 | disposition home or self-care (01) ==
PROVIDERS: Physician Assistant; Emergency Provider Emergency Medicine; PCP Internal Medicine
DX: U07.1 COVID-19 (principal); R07.89 Other chest pain; R06.02 Shortness of breath; Z79.899 Other long term (current) drug therapy
CPT/HCPCS: 0241U; 36415; 80053; 83880; 84484; 85025; 85379; 85610; 85730; 93005; 99283; 99284

== ENCOUNTER → 2024-03-07 13:12 | Outpatient (BNV) | payer MEDICARE, MEDICAID, SELFPAY | PROVIDERS: PCP Internal Medicine; Visit Provider Internal Medicine Cardiovascular Disease | DX: R07.9 Chest pain, unspecified (principal) | CPT/HCPCS: 93010 ==

== ENCOUNTER 2024-10-26 15:27 | Outpatient (AMB) | payer MEDICARE, MEDICAID, SELFPAY ==
--- OUTSIDE RECORDS SUMMARY | 2024-10-26 15:29 | XMS_ITS | Clinical Summary ---
Author Organization [facility] Address [address] [place] [address] Care Team Providers Care Antisqueak Worker Name Role Phone John Gil MD Primary Care Provider [phone] Social History Tobacco Use Types Packs/Day Years Used Date Smoking Tobacco: Never Assessed Sex and Gender Information Value Date Recorded Sex Assigned at Not on file Gender Identity Not on file Sexual Orientation Not on file Plan of Treatment Health Maintenance Due Date Last Done Comments Hepatitis B Vaccines (1 of 3 - 3-dose series) 1976 Hepatitis C Screening 1976 COVID-19 Vaccine (#1) 06/04/1977 Depression Screening 1988 Preventative Health Evaluation 1994 DTap / Tdap / Td (1 - Tdap) 12/03/1995 Cervical Cancer Screening (P ap Smear) 1997 Colon Cancer Screening (Colonoscopy) 2021 Influenza Vaccine (#1) 2024 Pneumococcal Vaccine Aged Out No long er eligible based on patient's age to complete this topic RSV Ped < 20 months Aged Out No longe r eligible based on patient's age to complete this topic Care Teams Antisqueak Worker Relationship Specialty Start Date End Date John Gil MD [address] [place] [address] [address] [place] [address] PCP - General Behavioral Health Case Manager 03/18/20
[2024-10-26 15:37] VITALS: BP 144/90; PULSE 95; TEMP 37.1; O2SAT 99
--- NOTE | 2024-10-26 15:37 | MHC.OFFWIV ---
Intake Vital Signs 10/26/24 15:37 Height 5 ft 2 in BMI Reason not done Patient refused/unable BP 144/90 H Blood Pressure Location Rt brachial Position Sitting Pulse 95 Pulse Source Pulse Oximeter Temp 98.7 F Temp Source Oral Pulse Oximetry (%) 99 Intake Visit Reasons: EP Strep? Patient Tobacco Use Status: Never used Tobacco Allergies Sulfa (Sulfonamide Antibiotics) [SULFA (SULFONAMIDE ANTIBIOTICS)] Allergy (Intermediate, Verified 10/26/24 15:37) HIVES erythromycin base [Erythromycin Base] Allergy (Mild, Verified 10/26/24 15:37) HIVES lamotrigine [From Lamictal] Allergy (Mild, Verified 10/26/24 15:37) BLISTERS latex [Latex] Allergy (Mild, Verified 10/26/24 15:37) HIVES strawberry [STRAWBERRY] Allergy (Unknown, Verified 10/26/24 15:37) HIVES, TONGUE SWELLS nortriptyline Adverse Reaction (Severe, Verified 10/26/24 15:37) tachycardia Do you need a note to return to daycare/school/sports/work: No HPI HPI Comments History of Present Illness Details History of Present Illness The patient is a 48-year-old female presenting with a sore throat and exposure to streptococcal infection. Her sore throat has worsened over the past week, and she initially suspected thrush due to a white coating on her tongue. The patient has been taking trimethoprim as prophylaxis for recurrent urinary tract infections, but her symptoms have persisted. She describes swollen glands, a heavy chest, difficulty breathing, and redness in her ears. Additionally, she has experienced canker sores and fluctuating hot and cold sensations, attributed to menopausal symptoms. The symptoms became more pronounced two to three days ago. The patient has had exposure to confirmed cases of streptococcal infections, including her twin sister, who had a negative rapid strep test but similar symptoms. She reports pain with swallowing and has limited her dietary intake to tea due to discomfort. The patient denies a cough but mentions a headache and emotional stress related to personal relationship issues, contributing to her anxiety. ROS Pertinent positives- CANAS, sore throat, ear pain, nausea, vomiting Denies fever, chills, CP, SOB, abd pain, diarrhea or constipation. Physical Exam - Ears- Bilateral ear canals are red, no fluid noted. TM's not bulging. No tragus tenderness noted bilaterally. - Throat- Uvula was midline. Pharynx is erythematous with no exudates noted. No visible thrush noted. Canker sores noted in the mouth. - Neck- large lymph nodes on the lateral neck. - Lungs- Clear to auscultation. - Heart- Normal heart sounds. Patient was informed and verbally consented to the use of an ambient scribe for clinic note documentation during this visit. [facility] Medical History History of open sigmoidectomy (~2014) Surgical History (Updated 10/08/22 @ 10:58 by Lilliana Fry CMA) H/O right knee surgery History of ankle surgery Social History Patient Tobacco Use Status: Never used Tobacco Current occupational status: disabled Physical Exam Vital Signs: Last Vital Signs Temp 98.7 F 10/26/24 15:37 Pulse 95 10/26/24 15:37 BP 144/90 H 10/26/24 15:37 Pulse Ox 99 10/26/24 15:37 Assessment & Plan Assessment & Plan (1) Sore throat: Code(s): J02.9 - Acute pharyngitis, unspecified Plan Most likely pharyngitis viral vs bacterial plan- -rapid negative in the office -based on Centor score, will treat her with an antibiotic -anoxicillin 500 mg BID for 10 days -tylenol or motrin as needed for pain -diet as tolerated -salt water gargles -f/u with PCP Medications: New amoxicillin 500 mg PO Q12H 20 tabs 0RF Coding Level of Care Code Est Pt Level 3 (57150) Diagnoses Sore throat J02.9
== END 2024-10-26 16:36 | disposition home or self-care (01) ==
PROVIDERS: PCP Internal Medicine; Visit Provider Physician Assistant Medical
DX: J02.9 Acute pharyngitis, unspecified (principal)

== ENCOUNTER → 2024-10-26 15:27 | Outpatient (BNVA) | payer MEDICARE, MEDICAID, SELFPAY | PROVIDERS: PCP Internal Medicine; Visit Provider Physician Assistant Medical | DX: J02.9 Acute pharyngitis, unspecified (principal) | CPT/HCPCS: 99212 ==

== ENCOUNTER 2025-03-21 16:05 | Outpatient (AMB) | payer MEDICARE, MEDICAID, SELFPAY ==
--- NOTE | 2025-03-21 16:07 | A.OFFPC_ITS ---
Vital Signs 03/21/25 16:21 Height 5 ft 2.2 in Weight 61.235 kg BMI 24.5 BP 128/90 H Blood Pressure Location Lt brachial Position Sitting Respiration 18 Pulse 97 Pulse Source Pulse Oximeter Temp 98.6 F Temp Source Temporal Artery Scan Pulse Oximetry (%) 99 Oxygen Delivery Method Room Air Intake Visit Reasons: LARS / Dr Gil Wide Area Network Systems Administrator Required: No Accompanied by: Self / Same As Patient Allergies Sulfa (Sulfonamide Antibiotics) (SULFA (SULFONAMIDE ANTIBIOTICS)) Allergy (Intermediate, Verified 03/21/25 16:07) HIVES erythromycin base (Erythromycin Base) Allergy (Mild, Verified 03/21/25 16:07) HIVES lamotrigine (From Lamictal) Allergy (Mild, Verified 03/21/25 16:07) BLISTERS latex (Latex) Allergy (Mild, Verified 03/21/25 16:07) HIVES strawberry (STRAWBERRY) Allergy (Unknown, Verified 03/21/25 16:07) HIVES, TONGUE SWELLS nortriptyline Adverse Reaction (Severe, Verified 03/21/25 16:07) tachycardia Tobacco use date assessed: 03/21/25 Dental Screening Dental Screen Date: 03/21/25 HPI HPI Comments History of Present Illness Details 41-year-old female with history of major depressive disorder, complex regional pain syndrome, lumbar radiculopathy with left footdrop s/p L4-L5 cysts with laminectomy, history of abdominal hernia repair with mesh and open sigmoidectomy with reversal due to incarceration, insomnia presenting to the office today for management of chronic conditions and to establish care. Last seen by prior PCP about 8 months ago. Lumbar radiculopathy with left footdrop-s/p L4-L5 laminectomy with bony cyst. Previously following with pain management, not interested in further intervention at pain management. Finds relief with tizanidine. Had followed with Dr. Raymond in Neurosurgery but has not been seen since 2019 as she wants to do another surgery anteriorly but would be quite complicated given history of multiple abdominal surgeries. Depression/insomnia-recent break-up with her fiance due to infidelity. Requesting STI testing. Follows with both counseling (Dr. Frey) as well as Psychiatry (Dr. Garcia). Reports significant sensitivity with psychiatric medications affecting her vision. Currently taking Adderall bupropion clonazepam. She continues to experience insomnia and has tried and failed multiple medications due to vision issues as noted. She does still take Adderall Complex regional pain syndrome-tizanidine Concerns: Swollen erythematous joints-primarily hands Health maintenance: Due for mammogram Follows with [facility] for colonoscopy/endoscopy 07/2024 Due for sensor technician ROS: General: No fevers, malaise, unintentional weight loss HEENT: No blurred vision, diplopia. No sore throat, nasal congestion, rhinorrhea, sinus pain, ear pain Cardiovascular: No chest pain, palpitations, or leg edema Respiratory: No shortness of breath, wheezing, cough GI: No abdominal pain, nausea, vomiting, diarrhea, constipation, melena, hematochezia : No dysuria, hematuria, increased urinary frequency, decreased urinary output MSK: No myalgia, back pain Neuro: No headaches, weakness, paresthesias Skin: No rashes or lesions EXAM: Constitutional - Awake and Alert, No apparent distress Eyes - PERRL Cardiovascular - S1S2, RRR, No edema Respiratory - Normal lung expansion, Normal respiratory effort, No respiratory distress, CTA bilaterally Extremities - no calf tenderness bilaterally, no swelling Skin - Warm/Dry Neurological - Alert & oriented x3 Psychological - depressed mood PFSH Medical History History of open sigmoidectomy (~2014) Surgical History (Updated 10/08/22 @ 10:58 by Lilliana Fry CMA) H/O right knee surgery History of ankle surgery Social History Patient Tobacco Use Status: Never used Tobacco Current occupational status: disabled Physical exam (Primary Care) Vital Signs: Last Vital Signs Temp 98.6 F 03/21/25 16:21 Pulse 97 03/21/25 16:21 Resp 18 03/21/25 16:21 BP 128/90 H 03/21/25 16:21 Pulse Ox 99 03/21/25 16:21 Oxygen Delivery Method Room Air 03/21/25 16:21 BMI result Body Mass Index 24.5 Tobacco/Smoking Status: Tobacco use Status Tobacco use date assessed 03/21/25 03/21/25 16:09 Patient Tobacco Use Status Never used Tobacco 03/21/25 16:09 Coding Level of Care Code New Pt Level 4 (72653) Complex EM visit Add On G2211 Diagnoses MDD (major depressive disorder) F32.9 Lumbar radiculopathy, right M54.16 CRPS (complex regional pain syndrome type I) G90.50 Routine screening for STI (sexually transmitted infection) Z11.3 Polyarthralgia M25.50 Assessment & Plan Assessment & Plan (1) MDD (major depressive disorder): Code(s): F32.9 - Major depressive disorder, single episode, unspecified Category: Medical Plan: Continue following with Dr. Aburto and Dr. Frey. Continue with positive coping mechanisms. Continue with medications as prescribed. Adderall may be affecting her insomnia but will defer to Psychiatry. No SI/HI (2) Lumbar radiculopathy, right: Code(s): M54.16 - Radiculopathy, lumbar region Category: Medical Plan: Tizanidine prescribed (3) CRPS (complex regional pain syndrome type I): Code(s): G90.50 - Complex regional pain syndrome I, unspecified Category: Medical Plan: Tizanidine (4) Routine screening for STI (sexually transmitted infection): Code(s): Z11.3 - Encounter for screening for infections with a predominantly sexual mode of transmission Plan: Ordered as below (5) Polyarthralgia: Code(s): M25.50 - Pain in unspecified joint Category: Medical Plan: With associated swelling and redness. CHAYITO, rheumatoid factor, ESR, CRP ordered Plan Follow-up in 1 month Referred for mammogram, sensor technician Orders: Orders Basic Metabolic Panel 03/22/25 F32.9 - Major depressive disorder, single episode, unspecified Lipid Panel 03/22/25 F32.9 - Major depressive disorder, single episode, unspecified TSH reflex Free T4 03/22/25 F32.9 - Major depressive disorder, single episode, unspecified CT NG by PCR Urine 03/22/25 Z11.3 - Encounter for screening for infections with a predominantly sexual mode of transmission Rheumatoid Factor 03/22/25 E53.8 - Deficiency of other specified B group vitamins, M25.40 - Effusion, unspecified joint, M25.50 - Pain in unspecified joint C Reactive Protein 03/22/25 E53.8 - Deficiency of other specified B group vitamins, M25.40 - Effusion, unspecified joint, M25.50 - Pain in unspecified joint Complete Blood Count Auto Diff 03/22/25 F32.9 - Major depressive disorder, single episode, unspecified Hemoglobin A1c 03/22/25 F32.9 - Major depressive disorder, single episode, unspecified Liver Panel 03/22/25 F32.9 - Major depressive disorder, single episode, unspecified Vitamin D 25-OH Total 03/22/25 F32.9 - Major depressive disorder, single episode, unspecified HIV Ab/Ag 03/22/25 Z11.3 - Encounter for screening for infections with a predominantly sexual mode of transmission Syphilis Screen 03/22/25 Z11.3 - Encounter for screening for infections with a predominantly sexual mode of transmission CHAYITO Reflex Titer and Pattern 03/22/25 E53.8 - Deficiency of other specified B group vitamins, M25.40 - Effusion, unspecified joint, M25.50 - Pain in unspecified joint Erythrocyte Sedimentation Rate 03/22/25 E53.8 - Deficiency of other specified B group vitamins, M25.40 - Effusion, unspecified joint, M25.50 - Pain in unspecified joint Vitamin B12 03/22/25 E53.8 - Deficiency of other specified B group vitamins, M25.40 - Effusion, unspecified joint, M25.50 - Pain in unspecified joint MM tomosynthesis screening BI 03/21/25 Z12.31 - Encounter for screening mammogram for malignant neoplasm of breast Referrals CREDIT CONTROL OFFICER Referral N83.209 - Unspecified ovarian cyst, unspecified side, Z12.4 - Encounter for screening for malignant neoplasm of cervix Medications: Changed From nystatin PO B37.0 - Candidal stomatitis, B37.9 - Candidiasis, unspecified, T36.95XA - Adverse effect of unspecified systemic antibiotic, initial encounter To nystatin Swish and spit 400,000 units (4ml) QID x7 days. May repeat course as needed for thrush 500 mL 2RF B37.0 - Candidal stomatitis, B37.9 - Candidiasis, unspecified, T36.95XA - Adverse effect of unspecified systemic antibiotic, initial encounter Refilled tizanidine 4 mg PO TID PRN 270 tabs 4RF for muscle spasm 30 days Patient Instructions: Trial valerian root. 5mg melatonin
[2025-03-21 16:21] VITALS: BP 128/90; PULSE 97; RESP 18; TEMP 37; O2SAT 99; BMI 24.5
--- OUTSIDE RECORDS SUMMARY | 2025-03-21 21:57 | XMS_ITS | Clinical Summary ---
Author Organization [facility] Address [address] [place] [address] Care Team Providers Care Therapy Tech Name Role Phone John Gil MD Primary Care Provider [phone] Social History Tobacco Use Types Packs/Day Years [...] Cancer Screening (Colonoscopy) 2021 Influenza Vaccine (#1) 2025 Pneumococcal Vaccine Aged Out No long er eligible based on patient's age to complete this topic RSV Ped < 20 months Aged Out No longe r eligible based on patient's age to complete this topic Care Teams Therapy Tech Relationship Specialty Start Date End Date John Gil MD [address] [place] [address] [address] [place] [id number] PCP - General Equine Manager 03/18/20
--- OUTSIDE RECORDS SUMMARY | 2025-03-21 21:57 | XMS_ITS | Clinical Summary ---
Author Organization [address] Address [address] [place] [phone] Phone Care Team Providers Care Manager Software Development Name Role Phone John Gil MD Primary Care Provider [phone] Social History Tobacco Use Types Packs/Day Years Used Date Smoking Tobacco: Never Assessed Comments Unknown Sex and Gender Information Value Date Recorded Sex Assigned at Not on file Legal Sex Female 11:34 PM EST Gender Identity Not on file Sexual Orientation Not on file Plan of Treatment Health Maintenance Due Date Last Done Comments Breast Cancer Screening 1975 Colorectal Cancer Screening: Colonoscopy 1976 DTaP,Tdap,and Td Vaccines (1 - Tdap) 12/03/1995 Hepatitis B Vaccines (1 of 3 - 19+ 3-dose series) 12/03/1995 Cervical Cancer Screening: P ap Smear 1997 Depression Screening 05/31/2024 HIV Screening 09/01/2024 Hepatitis C Screening 09/01/2024 Medicare Annual Wellness Visit 09/01/2024 Social Influencers of Health Screening 09/01/2024 COVID-19 Vaccine (2023-2 5 season) 2025 Influenza Vaccine (#1) 2025 RSV Immunization Adult Patie nts (1 - 1-dose 75+ series) 12/03/2051 HIB Vaccines Aged Out No longer eligi ble based on patient's age to complete this topic HPV Vaccines Aged Out No longer eligi ble based on patient's age to complete this topic Hepatitis A Vaccines Aged Out No long er eligible based on patient's age to complete this topic IPV Vaccines Aged Out No longer eligi ble based on patient's age to complete this topic MMR Vaccines Aged Out No longer eligi ble based on patient's age to complete this topic Meningococcal ACWY Vaccine Aged Out N o longer eligible based on patient's age to complete this topic Meningococcal B Vaccine Aged Out No l onger eligible based on patient's age to complete this topic Pneumococcal Vaccine: Pediat rics (0 to 5 Years) and At-Risk Patients (6 to 49 Years) Aged Out No longer eligible b ased on patient's age to complete this topic RSV Immunization Patients Un palmira 20 months Aged Out No longer eligible b ased on patient's age to complete this topic Varicella Vaccines Aged Out No longer eligible based on patient's age to complete this topic Insurance [place]IC[place] Advance Directives Documents on File Type Date Recorded Patient Relief Captain Expl anation Health Care Decision (hx) 10/18/2017 AD WHITE DIRECTIVE Health Care Decision (hx) 10/18/2017 AD WHITE DIRECTIVE Care Teams Manager Software Development Relationship Specialty Start Date End Date John Gil MD [address] [place] [address] Dr Cummings [place] PCP - General Internal Medicine 09/02/15
--- OUTSIDE RECORDS SUMMARY | 2025-03-21 21:57 | XMS_ITS | Patient Health Record ---
Author Organization [facility] Address [address] [place] [phone] Care Team Providers Care Sales Estimator Name Role Phone Steven Mendoza Jr [phone] Reason For Referral No Information Plan Of Treatment No Information
--- OUTSIDE RECORDS SUMMARY | 2025-03-21 21:57 | XMS_ITS | Clinical Summary ---
Author Organization [facility] Address [address] [address] Phone Care Team Providers Care Neuro Intensivist Physician Name Role Phone John Gil MD Primary Care Provider Allergies Active Allergy Reactions Criticality Noted Date Comments Allergen Enl-Lrsrf-Uktdg Bee Anaphylaxis High 2023 Erythromycin 09/20/2023 Lamotrigine 09/20/2023 Latex 09/20/2023 Lurasidone 09/20/2023 Medications buPROPion (WELLBUTRIN XL) 300 MG ER 24 hr tablet Take 300 mg by mouth every morning. 4 Active cetirizine (ZYRTEC) 10 MG tablet Take 1 tablet by mouth every morning. 4 Active clonazePAM (KLONOPIN) 0.5 MG tablet Take 0.5 mg by mouth 3 (three) times a day. As needed, not often 4 Active dextroamphetam ine-amphetamin e (ADDERALL) 20 mg Tab tablet Take 20 mg by mouth 4 (four) times a day. 4 Active EPINEPHrine 0.3 mg/0.3 mL auto-injector INJECT 1 PEN INJECTOR SUBCUTANEOUSLY SINGLE DOSE 4 Active fluconazole (DIFLUCAN) 150 MG tablet TAKE 1 TABLET BY MOUTH EVERY 3 DAYS. 4 Active fluticasone propionate (FLONASE) 50 mcg/actuation nasal spray INSTILL 1 SPRAY INTO BOTH NOSTRILS TWICE A DAY 4 Active tiZANidine (ZANAFLEX) 4 MG tablet TAKE 1 TABLET BY MOUTH 3 TIMES DAILY NEEDED FOR MUSCLE SPASMS 4 Active Active Problems Problem Noted Date Diagnosed Date Diarrhea due to malabsorption 09/20/2023 Assessment & Plan (09/20/2023 2:10 PM EDT): This is a 47-year-old woman who has a surgical history of a sigmoid colectomy with colostomy creation for perforated sigmoid diverticulitis with subsequent reversal of the colostomy and later incisional hernia repair all performed by me. The patient now presents with abdominal discomfort that is not well-described. She reports that foods are not digested well and often times come out whole in her stools. She reports having loose stools as well. She does not have any evidence of recurrence of incisional hernia and her abdomen is nontender on exam. I personally reviewed the CT scan reading from her most recent CT scan February 2023 that shows no surgical diagnoses or complications. I believe that the patient would be best served seeing a supervisor stock ranch regarding the poor digestion of her foods and the feeling of early satiety as well as looser stools. Patient will see her primary care physician for referral to the supervisor stock ranch who performed her colonoscopy before she had her colostomy reversal. It is time for her surveillance colonoscopy anyway as she was due at age 46. There is no indication for any surgical intervention at this time. The patient should follow-up with me on as-needed basis. I personally spent 43 minutes with this patient which included documentation. Family History Medical History Relation Comments Alcohol abuse Brother Suicide Father Breast cancer Mother Relation Status Comments Brother Alive Father Mother Alive Sister Alive Social History Tobacco Use Types Packs/Day Years Used Date Smoking Tobacco: Never Smokeless Tobacco: Never Tobacco Cessation:Counseling Given: Not Answered Alcohol Use Standard Drinks/Week Comments Never 0 (1 standard drink = 0.6 oz pur e alcohol) Education Answer Date Recorded Are you interested in more education? Not on tom e 09/08/2023 Are you concerned about learning? Not on file 09/08/2023 No 09/08/2023 No 09/08/2023 Digital Access Answer Date Recorded No 09/08/2023 No 09/08/2023 Reliable internet access at home? Not on file 09/08/2023 Device with a working camera? Not on file Comments Unknown Sex and Gender Information Value Date Recorded Sex Assigned at Not on file Legal Sex Female 9:26 PM EDT Gender Identity Not on file Sexual Orientation Not on file Occupation Industry Job Start Date Job End Date disabled Not on file Not on file Not on file Last Filed Vital Signs Vital Sign Reading Time Taken Comments Blood Pressure 150/90 09/20/2023 1:28 PM EDT Pulse 112 09/20/2023 1:28 PM EDT Temperature 37.1 C (98.7 F) 09/20/2023 1:28 PM EDT Respiratory Rate - - Oxygen Saturation 99% 09/20/2023 1:2 8 PM EDT Inhaled Oxygen Concentration - - Weight 66.5 kg (146 lb 9.6 oz) 09/20/2023 1:28 PM EDT with boots and leg brace Height 157.5 cm (5' 2 ) 09/20/2023 1:28 PM EDT Body Mass Index 26.81 09/20/2023 1:28 PM EDT Plan of Treatment Health Maintenance Due Date Last Done Comments Adult Td,Tdap Booster 1976 LIPID PANEL 1976 DEPRESSION SCREENING 1988 HEPATITIS C SCREENING 1994 HIV ONE-TIME SCREENING (18-6 5 YEARS) 1994 PAP SMEAR 1997 MAMMOGRAM 2016 COLOGUARD 2021 COLONOSCOPY 2021 COLORECTAL CANCER SCREENING 2021 FIT TEST 2021 FOBT 2021 SIGMOIDOSCOPY 2021 VIRTUAL COLONOSCOPY 2021 INFLUENZA VACCINE (#1) 2024 COVID-19 VACCINE (1 - 2024-2 6 season) 2025 SCREENING FOR DIABETES 07/27/2027 07/27/2024 SMOKING STATUS SCREENING (On ce After 26 Yrs) Completed 09/20/2023 HEPATITIS A VACCINES Aged Out No long er eligible based on patient's age to complete this topic HIB VACCINES Aged Out No longer eligi ble based on patient's age to complete this topic MENINGOCOCCAL VACCINES (ACWY) Aged Out No longer eligible based on patient's age to complete this topic MENINGOCOCCAL VACCINES (B) Aged Out N o longer eligible based on patient's age to complete this topic PNEUMOCOCCAL VACCINES (0-49 years) Aged Out No longer eligible based on patient's age to complete this topic Medical Devices Not on file Insurance [address] [place] [id number] MEDICARE PART A & [place] [address] [place] [id number] MEDICARE PART A [place] * Guarantor: Anne Turner Account Type Relation to Patient Date of Phone Billing Address Personal/Family Self 1975 [address] [facility] [address] [place] [address] MEDICARE PART A & B [facility] * Guarantor: JohnnyAnne Account Type Relation to Patient Date of Phone Billing Address Personal/Family Self 1975 [address] [facility] [address] [place] [address] MEDICARE PART A & B [facility] Care Teams Neuro Intensivist Physician Relationship Specialty Start Date End Date John Gil MD [address] [place] [address] [place] [address] PCP - General Internal Medicine 09/08/23 Additional Source Comments The information contained in this document represents components of the legal health record. It is not the complete legal health record.[facility]
--- OUTSIDE RECORDS SUMMARY | 2025-03-21 21:57 | XMS_ITS | Encounter Summary ---
Author Organization [facility] Address [address] [facility] [address] [place] [address] Phone Care Team Providers Care Global Supply Chain Director Name Role Phone John Gil MD Primary Care Provider Encounter Details Date Type Department Care Team (Latest Contact Info) Description 07/27/2024 Transcribe Orders [facility] [address] [place] [phone] Serena Ventura, EXECUTIVE PRODUCER PROMOS [address] [place] [phone] [email or web address] Rectal bleeding (Primary Dx); Diarrhea, unspecified type; Abdominal pain, left lower quadrant; Gastroesophageal reflux disease with esophagitis, unspecified whether hemorrhage Social History Tobacco Use Types Packs/Day Years Used Date Smoking Tobacco: Never Smokeless Tobacco: Never Alcohol Use Standard Drinks/Week Comments Never 0 [...] file Not on file Not on file documented as of this encounter Plan of Treatment Not on file documented as of this encounter Results * Calprotectin, stool (07/28/2024 9:00 AM EST) STOOL CALPROTECTIN 23 mcg/g [facility]/Kermit [facility] Comment: (NOTE) Reference Range: <50 Normal 50-120 Borderline >120 Elevated Calprotectin in Crohn's disease and ulcerative colitis can be five to several thousand times above the reference population (50 mcg/g or less). Levels are usually 50 mcg/g or less in healthy patients and with irritable bowel syndrome. Repeat testing in 4-6 weeks is suggested for borderline values. Stool (Stool) 07/28/2024 9:0 0 AM EST 07/28/2024 2:01 PM EST Serena Ventura CNP BODY FLUIDS AND STOOLS ORD ERABLES Final Result Performing Organization Address City/[facility]/ZIP Co de Phone Number [facility] [address] [place] [address], [facility] [phone] * C. DIFFICILE PCR (07/28/2024 9:00 AM EST) Pathologist [facility] C.DIFFICILE PCR Negative Negative [facility] C.DIFFICILE STRAIN PRESUMPTIVE NEGATIVE PRESUMPTIVE NEGATIVE [facility] Comment:Detection of 027/NAP 1/BI strains of C.difficile is presumptive and is solely for epidemiological purposes and is not intended to guide or monitor treatment of infections. Stool (Stool) 07/28/2024 9:0 0 AM EST 07/28/2024 2:01 PM EST Serena Ventura CNP MICROBIOLOGY - GENERAL ORD ERABLES Final Result Performing Organization Address City/[facility]/ZIP Co de Phone Number [facility] [address] [place] [address] * TSH (07/27/2024 11:46 AM EST) TSH 1.90 0.27 - 4.20 uIU/mL [facility] Blood 07/27/2024 11:4 6 AM EST 07/27/2024 12:20 PM EST us Serena Ventura [employer]ECUT[employer] LAB BLOOD ORDERABLES Final Result [address] [address] * (ABNORMAL) Comprehensive metabolic panel (07/27/2024 11:46 AM EST) SODIUM 141 133 - 146 mmol/L [facility] POTASSIUM 4.3 3.3 - 5.1 mmol/L [facility] CHLORIDE 102 96 - 108 mmol/L [facility] CO2 27 21 - 35 mmol/L [facility] BUN 10 6 - 19 mg/dL [facility] CREATININE 0.60 0.5 - 1.5 mg/dL [facility] GLUCOSE 100(H) 70 - 99 mg/dL [facility] ALBUMIN 4.9(H) 3.9 - 4.8 g/dL [facility] TOTAL PROTEIN 7.5 6.5 - 8.0 g/dL [facility] CALCIUM 9.9 8.4 - 10.3 mg/dL [facility] ALKALINE PHOSPHATASE 65 39 - 117 U/L [facility] TOTAL BILIRUBIN 0.4 0.0 - 1.2 mg/dL [facility] AST 33 0 - 37 U/L [facility] ALT 37 0 - 40 U/L [facility] GLOBULIN 2.6 1 - 4.8 g/dL [facility] EGFR 111 >59 mL/min/1.7 3m2 [facility] Comment:Estimated glomerular filtration rate calculated using the CKD-EPI refit equation. ANION GAP 16 10 - 20 mmol/L [facility] Blood 07/27/2024 11:4 6 AM EST 07/27/2024 12:20 PM EST Serena Ventura [facility] BLOOD ORDERABLES Final Result Performing Organization Address City/[facility]/ZIP Co de Phone Number [address] [address] * C-Reactive Protein (07/27/2024 11:46 AM EST) C REACTIVE PROTEIN <3.0 0.0 - 4.0 mg/L [facility] Blood 07/27/2024 11:4 6 AM EST 07/27/2024 12:20 PM EST Serenadominga Abel Lorenzo [facility] LAB BLOOD ORDERABLES Final Result [facility] [address] [place] [address] * (ABNORMAL) CBC and differential (07/27/2024 11:46 AM EST) WBC 10.75 4.00 - 11.00 K/uL [facility] RBC 4.31 4.00 - 5.20 M/uL [facility] HGB 13.4 12.0 - 16.0 g/dL [facility] HCT 39.8 36.0 - 46.0 % [facility] PLT 363 150 - 450 K/uL [facility] MCV 92.3 80.0 - 100.0 fL [facility] MCH 31.1(H) 27.0 - 31.0 pg [facility] MCHC 33.7 32.0 - 36.0 g/dL [facility] RDW 12.1 11.5 - 14.5 % [facility] MPV 8.9 8.4 - 12.0 fL [facility] NRBC 0.00 0.00 /100 WBCs [facility] ABSOLUTE NRBC 0.00 0.00 K/uL [facility] DIFF METHOD Auto [facility] NEUTS 67.1 48.0 - 76.0 % [facility] LYMPHS 26.9 18.0 - 41.0 % [facility] MONOS 4.6 4.0 - 11.0 % [facility] EOS 0.6 0.0 - 5.0 % [facility] BASOS 0.6 0.0 - 1.5 % [facility] Granulocytes, immature (%) 0.2 0.0 - 0.9 % [facility] ABSOLUTE NEUTS 7.23 1.92 - 7.60 K/uL [facility] ABSOLUTE LYMPHS 2.89 0.72 - 4.10 K/uL [facility] ABSOLUTE MONOS 0.49 0.16 - 1.10 K/uL [facility] ABSOLUTE EOS 0.06 0.00 - 0.50 K/uL [facility] ABSOLUTE BASOS 0.06 0.00 - 0.15 K/uL [facility] Granulocytes, immature 0.02 0.00 - 0.09 K/uL [facility] Blood 07/27/2024 11:4 6 AM EST 07/27/2024 12:20 PM EST Serenadominga Nashgerard Ventura [facility] BLOOD ORDERABLES Final Result Performing Organization Address [facility] [[email or web address]] Co de Phone Number [address] [phone] * Immunoglobulin A (07/27/2024 11:46 AM EST) IgA 70 70 - 400 mg/dL [facility] Blood 07/27/2024 11:4 6 AM EST 07/27/2024 12:20 PM [address] [facility] LAB BLOOD ORDERABLES Final Result Performing Organization Address [facility] [[email or web address]] Co de Phone Number [address] [address] * Tissue transglutaminase IgA (07/27/2024 11:46 AM EST) TTG IGA ANTIBODY <1.2 <4.0 (Negative) U/mL [facility] Blood 07/27/2024 11:4 6 AM EST 07/27/2024 12:29 PM EST Serena Ventura [facility] BLOOD ORDERABLES Final Result Performing Organization Address City/[facility]/ZIP Co de Phone Number [facility] [address] [address] documented in this encounter Visit Diagnoses Diagnosis Rectal bleeding- Primary Hemorrhage of rectum and anus Diarrhea, unspecified type Abdominal pain, left lower quadrant Gastroesophageal reflux disease with esophagitis, unspecified whether hemorrhage documented in this encounter Additional Health Concerns Infection Onset Date Last Indicated Resolved Time CDiff-Risk 07/27/2024 07/28/2024 07/28/2024 10:4 9 PM EST documented as of this encounter Care Teams Global Supply Chain Director Relationship Specialty Start Date End Date John Gil MD [address] [place] [address] [place] [address] PCP - General Internal Medicine 09/08/23 documented as of this encounter Additional Source Comments The information contained in this document represents components of the legal health record. It is not the complete legal health record.[facility]
--- OUTSIDE RECORDS SUMMARY | 2025-03-21 21:57 | XMS_ITS | Encounter Summary ---
Author Organization [facility] Address [address] [place] [address] Care Team Providers Care Salesperson Fashion Accessories Name Role Phone John Gil MD Primary Care Provider [phone] Encounter Details Date Type Department Care Team (Late st Contact Info) Description 08/31/[address] [facility] [address] [facility] [place] [address] Melissa Warner PA [address] [place] [address] Urinary tract infection, site not specified; Interstitial cystitis (chronic) with hematuria Social History Tobacco Use Types Packs/Day Years Used Date Smoking Tobacco: Never Assessed Comments Unknown Sex and Gender Information Value Date Recorded Sex Assigned at Not on file Legal Sex Female 11:34 PM EST Gender Identity Not on file Sexual Orientation Not on file documented as of this encounter Plan of Treatment Not on file documented as of this encounter Procedures Procedure Name Priority Date/Time Associated Diagnosis Comments CULTURE URINE Routine 08/31/2024 10:45 AM EDT Urinary tract infection, site not specified Interstitial cystitis (chronic) with hematuria documented in this encounter Results * Culture urine (08/31/2024 10:45 AM EDT) Culture, Urine No growth 09/01/2024 10:40 AM EDT [facility] Urine Urine specimen obtained by clean catch procedure / Unknown 08/31/2024 10:45 AM EDT 08/31/2024 2:40 PM EDT us Melissa HARMON LAB MICROBIOLOGY - GENERAL ORD ERABLES Final Result [facility] [address] [place] [address], documented in this encounter Visit Diagnoses Diagnosis Urinary tract infection, site not specified Interstitial cystitis (chronic) with hematuria documented in this encounter Care Teams Salesperson Fashion Accessories Relationship Specialty Start Date End Date John Gil MD [address] [place] [address] Dr Cummings [place], [place] PCP - General Internal Medicine 09/02/15 documented as of this encounter
== END 2025-03-21 17:46 | disposition home or self-care (01) ==
LOC: HO.HMCHD 16:06
PROVIDERS: PCP Internal Medicine; Visit Provider Physician Assistant
DX: F32.9 Major depressive disorder, single episode, unspecified (principal); M54.16 Radiculopathy, lumbar region; G90.50 Complex regional pain syndrome I, unspecified; Z11.3 Encounter for screening for infections with a predominantly sexual mode of transmission; M25.50 Pain in unspecified joint

== ENCOUNTER → 2025-03-21 16:05 | Outpatient (BNVA) | payer MEDICARE, MEDICAID, SELFPAY | PROVIDERS: PCP Internal Medicine; Visit Provider Physician Assistant | DX: F32.9 Major depressive disorder, single episode, unspecified (principal); M54.16 Radiculopathy, lumbar region; G90.50 Complex regional pain syndrome I, unspecified; M25.50 Pain in unspecified joint; N83.209 Unspecified ovarian cyst, unspecified side; G47.00 Insomnia, unspecified; B37.0 Candidal stomatitis; T36.95XA Adverse effect of unspecified systemic antibiotic, initial encounter; Z79.899 Other long term (current) drug therapy | CPT/HCPCS: 99202 ==

== ENCOUNTER 2025-03-22 11:50 | Outpatient (REF) | payer MEDICARE, MEDICAID, SELFPAY ==
[2025-03-22 12:12] LABS: MANUAL DIFF FLAG NO
[2025-03-22 12:24] LABS: Hematocrit 38.9 % (37.0-47.0); Hemoglobin 13.1 g/dl (12.0-16.0); Imm Gran Abs Auto 0.02 X10*3/uL (0.00-0.03); Imm Gran Pct Auto 0.2 % (0.0-0.4); Lymphocytes Absolute Auto 2.4 X10*3/uL (1.2-4.9); Mean Corpuscular HGB Conc 33.7 g/dl (31.0-35.0); Mean Corpuscular Hemoglobin 31.3 pg (27.0-33.0); Mean Corpuscular Volume 92.8 fL (80.0-98.0); NRBC Abs Auto 0.000 X10*3/uL (0.0-0.012); NRBC Pct Auto 0.0 /100WBC (0.0-0.2); Platelet Count 315 X10*3/uL (160-400); Red Blood Count 4.19 X10*6/uL (4.20-5.50); White Blood Count 8.0 X10*3/uL (4.8-10.8)
[2025-03-22 12:58] LABS: Alanine Aminotransferase 26 U/L (0-31); Albumin Level 4.7 g/dL (3.5-5.0); Alkaline Phosphatase 51 U/L (39-117); Anion Gap 12 (12-20); Aspartate Amino Transferase 22 U/L (5-31); Blood Urea Nitrogen 8 mg/dL (9-16); Calcium 9.2 mg/dL (8.4-10.2); Carbon Dioxide 27 mmol/L (22-29); Chloride 106 mmol/L (96-108); Cholesterol 214 mg/dL (<200); Estimated Glomerular Filt Rate > 60; HDL Cholesterol 58 mg/dL (>40); Potassium 3.9 mmol/L (3.3-5.1); Sodium 141 mmol/L (135-145); Total Protein 7.0 g/dL (6.5-8.0); Triglycerides 88 mg/dL (<150)
[2025-03-22 13:19] LABS: Vitamin B12 579 pg/mL (200-900)
[2025-03-22 14:20] LABS: CT PCR Urine NOT DETECTED (Not Detect.); NG PCR Urine NOT DETECTED (Not Detect.)
--- OUTSIDE RECORDS SUMMARY | 2025-03-22 15:09 | XMS_ITS | Patient Health Record ---
Author Organization [facility] Address [address] [place] [phone] Care Team Providers Care Billet Grinder Name Role Phone Steven Mendoza Jr Reason For Referral No Information Plan Of Treatment No Information
--- OUTSIDE RECORDS SUMMARY | 2025-03-22 15:09 | XMS_ITS | Clinical Summary ---
Author Organization [address] Address [address] [place] [phone] Phone Care Team Providers Care Tire Rebuilder Name Role Phone John Gil MD Primary Care Provider [phone] Social History Tobacco Use Types Packs/Day Years [...] Documents on File Type Date Recorded Patient Account Maintenance Representative Expl anation Health Care Decision (hx) 10/18/2017 AD WHITE DIRECTIVE Health Care Decision (hx) 10/18/2017 AD WHITE DIRECTIVE Care Teams Tire Rebuilder Relationship Specialty Start Date End Date John Gil MD [address] [place] [address] Dr [place] PCP - General Internal Medicine 09/02/15
--- OUTSIDE RECORDS SUMMARY | 2025-03-22 15:09 | XMS_ITS | Clinical Summary ---
Author Organization [facility] Address [address] [place] [address] Care Team Providers Care Jewel Bearing Facer Name Role Phone John Gil MD Primary Care Provider [phone] Social History Tobacco Use Types Packs/Day Years [...] age to complete this topic Care Teams Jewel Bearing Facer Relationship Specialty Start Date End Date John Gil MD [address] [place] [address] Dr [address] [place] [address] PCP - General Spinning Frame Tender 03/18/20
--- OUTSIDE RECORDS SUMMARY | 2025-03-22 15:09 | XMS_ITS | Encounter Summary ---
Author Organization [facility] Address [address] [place] [address] Care Team Providers Care Wildlife Technician Name Role Phone John Gil MD Primary Care Provider [phone] Encounter Details Date Type Department Care Team (Late st Contact Info) Description 08/31/2024 Lab Requisition [facility] - Main Lab [address] [facility] Life [address] [place] [address] Melissa Warner PA [address] [place] [address] Urinary tract infection, site not specified; Interstitial [...] Urine No growth 09/01/2024 10:40 AM EDT [facility] ([facility]) [facility] Urine Urine specimen obtained by clean catch procedure / Unknown 08/31/2024 10:45 AM EDT 08/31/2024 2:40 PM EDT us Melissa HARMON LAB MICROBIOLOGY - GENERAL ORD ERABLES Final Result [facility] ([facility]) H[facility]PITAL LAB [address] [place] [address], documented in this encounter Visit Diagnoses Diagnosis Urinary tract infection, site not specified Interstitial cystitis (chronic) with hematuria documented in this encounter Care Teams Wildlife Technician Relationship Specialty Start Date End Date John Gil MD [address] [place] [address] Dr Cummings [place], [place] PCP - General Internal Medicine 09/02/15 documented as of this encounter
--- OUTSIDE RECORDS SUMMARY | 2025-03-22 15:09 | XMS_ITS | Encounter Summary ---
Author Organization [facility] Address [address] [facility] [address] [place] [address] Phone Care Team Providers Care Blanket Winder Operator Name Role Phone John Gil MD Primary Care Provider Encounter Details Date Type Department Care Team (Latest Contact Info) Description 07/27/2024 Transcribe Orders [facility] Laboratory [address] [place] [address] Serena Ventura, PHARMACY TECHNICIAN TRAINEE [address] [place] [address] [email or web address] Rectal bleeding (Primary Dx); Diarrhea, unspecified type; [...] STOOL CALPROTECTIN 23 mcg/g [facility]/Kermit [facility] Comment: (NOTE) Reference Range: <50 Normal 50-120 [...] ORD ERABLES Final Result Performing Organization Address City/[facility]/ZIP Co de Phone Number [facility] [address] [place] [address], [facility] [phone] * C. DIFFICILE PCR (07/28/2024 9:00 AM EST) Pathologist [facility] C.DIFFICILE PCR Negative Negative [facility] C.DIFFICILE STRAIN PRESUMPTIVE NEGATIVE PRESUMPTIVE NEGATIVE [facility] Comment:Detection of 027/NAP 1/BI strains of C.difficile is presumptive and is solely for epidemiological purposes and is not intended to guide or monitor treatment of infections. Stool (Stool) 07/28/2024 9:0 0 AM EST 07/28/2024 2:01 PM EST Serena Ventura CNP MICROBIOLOGY - GENERAL ORD ERABLES Final Result Performing Organization Address City/[facility]/ZIP Co de Phone Number [facility] [address] [place] [address] * TSH (07/27/2024 11:46 AM EST) TSH 1.90 0.27 - 4.20 uIU/mL [facility] Blood 07/27/2024 11:4 6 AM EST 07/27/2024 12:20 PM EST us Serena Ventura PHARMACY TECHNICIAN TRAINEE LAB BLOOD ORDERABLES Final Result [address] [address] * (ABNORMAL) Comprehensive metabolic panel (07/27/2024 11:46 AM EST) SODIUM 141 133 - 146 mmol/L [facility] POTASSIUM 4.3 3.3 - 5.1 mmol/L [facility] CHLORIDE 102 96 - 108 mmol/L [facility] CO2 27 21 - 35 mmol/L [facility] BUN 10 6 - 19 mg/dL [facility] CREATININE 0.60 0.5 - 1.5 mg/dL [facility] GLUCOSE 100(H) 70 - 99 mg/dL [facility] ALBUMIN 4.9(H) 3.9 - 4.8 g/dL [facility] TOTAL PROTEIN 7.5 6.5 - 8.0 g/dL [facility] CALCIUM 9.9 8.4 - 10.3 mg/dL [facility] ALKALINE PHOSPHATASE 65 39 - 117 U/L [facility] TOTAL BILIRUBIN 0.4 0.0 - 1.2 mg/dL [facility] AST 33 0 - 37 U/L [facility] ALT 37 0 - 40 U/L [facility] GLOBULIN 2.6 1 - 4.8 g/dL [facility] EGFR 111 >59 mL/min/1.7 3m2 [facility] Comment:Estimated glomerular filtration rate calculated using the CKD-EPI refit equation. ANION GAP 16 10 - 20 mmol/L [facility] Blood 07/27/2024 11:4 6 AM EST 07/27/2024 12:20 PM EST Serena Ventura [facility] LAB BLOOD ORDERABLES Final Result Performing Organization Address City/[facility]/ZIP Co de Phone Number [address] [address] * C-Reactive Protein (07/27/2024 11:46 AM EST) C REACTIVE PROTEIN <3.0 0.0 - 4.0 mg/L [facility] Blood 07/27/2024 11:4 6 AM EST 07/27/2024 12:20 PM EST Serenadominga Abel Lorenzo [facility] LAB BLOOD ORDERABLES Final Result [facility] [address] [place] [address] * (ABNORMAL) CBC and differential (07/27/2024 11:46 AM EST) WBC 10.75 4.00 - 11.00 K/uL [facility] RBC 4.31 4.00 - 5.20 M/uL [facility] HGB 13.4 12.0 - 16.0 g/dL [facility] HCT 39.8 36.0 - 46.0 % [facility] PLT 363 150 - 450 K/uL [facility] MCV 92.3 80.0 - 100.0 fL [facility] MCH 31.1(H) 27.0 - 31.0 pg [facility] MCHC 33.7 32.0 - 36.0 g/dL [facility] RDW 12.1 11.5 - 14.5 % [facility] MPV 8.9 8.4 - 12.0 fL [facility] NRBC 0.00 0.00 /100 WBCs [facility] ABSOLUTE NRBC 0.00 0.00 K/uL [facility] DIFF METHOD Auto [facility] NEUTS 67.1 48.0 - 76.0 % [facility] LYMPHS 26.9 18.0 - 41.0 % [facility] MONOS 4.6 4.0 - 11.0 % [facility] EOS 0.6 0.0 - 5.0 % [facility] BASOS 0.6 0.0 - 1.5 % [facility] Granulocytes, immature (%) 0.2 0.0 - 0.9 % [facility] ABSOLUTE NEUTS 7.23 1.92 - 7.60 K/uL [facility] ABSOLUTE LYMPHS 2.89 0.72 - 4.10 K/uL [facility] ABSOLUTE MONOS 0.49 0.16 - 1.10 K/uL [facility] ABSOLUTE EOS 0.06 0.00 - 0.50 K/uL [facility] ABSOLUTE BASOS 0.06 0.00 - 0.15 K/uL [facility] Granulocytes, immature 0.02 0.00 - 0.09 K/uL [facility] Blood 07/27/2024 11:4 6 AM EST 07/27/2024 12:20 PM EST Serenadominga Nashgerard Ventura [facility] LAB BLOOD ORDERABLES Final Result Performing Organization Address [facility] Co de Phone Number [address] [address] * Immunoglobulin A (07/27/2024 11:46 AM EST) IgA 70 70 - 400 mg/dL [facility] Blood 07/27/2024 11:4 6 AM EST 07/27/2024 12:20 PM EST [facility] LAB BLOOD ORDERABLES Final Result Performing Organization Address [facility] Co de Phone Number [address] [address] * Tissue transglutaminase IgA (07/27/2024 11:46 AM EST) TTG IGA ANTIBODY <1.2 <4.0 (Negative) U/mL [facility] Blood 07/27/2024 11:4 6 AM EST 07/27/2024 12:29 PM EST Serena Ventura [facility] LAB BLOOD ORDERABLES Final Result Performing Organization Address City/[facility]/ZIP Co de Phone Number [facility]PATH [place] [address] [place] [address] documented in this encounter Visit Diagnoses Diagnosis Rectal bleeding- Primary Hemorrhage of rectum and anus Diarrhea, unspecified type Abdominal pain, left lower quadrant Gastroesophageal reflux disease with esophagitis, unspecified whether hemorrhage documented in this encounter Additional Health Concerns Infection Onset Date Last Indicated Resolved Time CDiff-Risk 07/27/2024 07/28/2024 07/28/2024 10:4 9 PM EST documented as of this encounter Care Teams Blanket Winder Operator Relationship Specialty Start Date End Date John Gil MD [address] [place] [address] [place] [address] PCP - General Internal Medicine 09/08/23 documented as of this encounter Additional Source Comments The information contained in this document represents components of the legal health record. It is not the complete legal health record.[facility]
--- OUTSIDE RECORDS SUMMARY | 2025-03-22 15:09 | XMS_ITS | Clinical Summary ---
Author Organization [facility] Address [address] [address] Phone Care Team Providers Care Fire Control Technician G Name Role Phone John Gil MD Primary Care Provider Allergies Active Allergy Reactions Criticality Noted Date Comments Allergen Sng-Icsgh-Hwhum Bee Anaphylaxis High 2023 Erythromycin 09/20/2023 Lamotrigine [...] patient would be best served seeing a wound care specialist regarding the poor digestion of her foods and the feeling of early satiety as well as looser stools. Patient will see her primary care physician for referral to the wound care specialist who performed her colonoscopy before she had [...] Medical Devices Not on file Insurance [address] [place] [id number] MEDICARE PART A & B [place] [address] [place] [id number] MEDICARE PART A & [place] & B [facility] MEDICARE PART A & B [facility] Care Teams Fire Control Technician G Relationship Specialty Start Date End Date John Gil MD [address] [place] [address] [place] [address] PCP - General Internal Medicine 09/08/23 Additional Source Comments The information contained in this document represents components of the legal health record. It is not the complete legal health record.[facility]
[2025-03-23 04:07] LABS: Syphilis Screen Nonreactive (Nonreactive)
[2025-03-23 04:43] LABS: HIV Num 1 0.06 S/CO (0.00-0.99)
[2025-03-29 14:43] LABS: Anti Nuclear Antibody Screen NEGATIVE (NEGATIVE)
== END 2025-03-22 11:51 | disposition home or self-care (01) ==
LOC: HO.LAB 11:50
PROVIDERS: PCP Physician Assistant; Visit Provider Physician Assistant
DX: Z01.84 Encounter for antibody response examination (principal); Z20.2 Contact with and (suspected) exposure to infections with a predominantly sexual mode of transmission; Z13.6 Encounter for screening for cardiovascular disorders; Z13.1 Encounter for screening for diabetes mellitus; M25.40 Effusion, unspecified joint; E53.8 Deficiency of other specified B group vitamins; F32.9 Major depressive disorder, single episode, unspecified; M25.50 Pain in unspecified joint
CPT/HCPCS: 80048; 80061; 80076; 82306; 82607; 83036; 84443; 85025; 85652; 86038; 86140; 86431; 86780; 87389; 87491; 87591

== ENCOUNTER 2025-03-29 16:13 | Outpatient (AMB) | payer MEDICARE, MEDICAID, SELFPAY ==
[2025-03-29 16:15] VITALS: BP 132/88; PULSE 96; TEMP 37; O2SAT 98; BMI 24.7
--- NOTE | 2025-03-29 16:16 | AM.OFFWIN_ITS ---
Intake Vital Signs 03/29/25 16:15 Height 5 ft 2 in Weight 135 lb BMI 24.7 BP 132/88 Blood Pressure Location Lt brachial Position Sitting Pulse 96 Pulse Source Pulse Oximeter Temp 98.6 F Temp Source Oral Pulse Oximetry (%) 98 Intake Visit Reasons: EP - Stomach Pain, ?Ulcers Patient Tobacco Use Status: Never used Tobacco Allergies Sulfa (Sulfonamide Antibiotics) (SULFA (SULFONAMIDE ANTIBIOTICS)) Allergy (Intermediate, Verified 03/29/25 16:16) HIVES erythromycin base (Erythromycin Base) Allergy (Mild, Verified 03/29/25 16:16) HIVES lamotrigine (From Lamictal) Allergy (Mild, Verified 03/29/25 16:16) BLISTERS latex (Latex) Allergy (Mild, Verified 03/29/25 16:16) HIVES strawberry (STRAWBERRY) Allergy (Unknown, Verified 03/29/25 16:16) HIVES, TONGUE SWELLS nortriptyline Adverse Reaction (Severe, Verified 03/29/25 16:16) tachycardia Medication List - Last Reconciled 03/29/25 by Jacque Isaac MD albuterol sulfate 90 mcg/actuation (Ventolin HFA) 2 puffs inhalation Q6H PRN biotin 10,000 mcg PO DAILY bupropion HCl XL 300 mg PO QAM bupropion HCl XL 150 mg PO DAILY cetirizine 10 mg PO DAILY clonazepam 0.5 mg PO TID PRN clotrimazole mg PO PRN dextroamphetamine-amphetamine 20 mg 40 mg PO BID diphenhydramine-acetaminophen 25-500 mg (Tylenol PM Extra Strength) 2 tabs PO BEDTIME PRN famotidine 40 mg PO DAILY PRN fluticasone propionate 50 mcg/actuation 2 sprays intranasal DAILY melatonin 5 mg PO .hs methenamine hippurate 1 g PO BID PRN multivitamin 1 tab PO DAILY nystatin Swish and spit 400,000 units (4ml) QID x7 days. May repeat course as needed for thrush omeprazole 20 mg PO DAILY tizanidine 4 mg PO TID PRN 30 days trimethoprim mg PO vitamins A,C,Z-sswk-lzxxnw 4,296 mcg-226 mg-90 mg (PreserVision AREDS) 1 cap PO BID HPI HPI Comments History of Present Illness Details Patient was informed and verbally consented to the use of an ambient scribe for clinic note documentation during the visit. History of Present Illness The patient is a 49-year-old female presenting with abdominal pain and a burning sensation. - Patient has a history of perforated di verticulitis status post sigmoidectomy and GERD - Patient was last seen by Dalia martínez on 12/06/2024. At that time, she was recommended to use famotidine 40 mg as needed for GERD with instructions to use more regularly if needed. She is also recommended a low FODMAP diet to try to limit gas producing foods and using Gas-X or Mylanta as needed. - The patient reports burning sensation over the entire torso, primarily the epigastric region, starting a couple of days ago. - The sensation worsens upon consuming a ny liquids or food - Relieved to some extent with Maalox an d Pepcid but only temporarily. - Stress identified as a significant con tributing factor due to personal and housing-related issues. She reports she lost someone close to her recently. She was also supposed to make a move to [place] and is having issues with housing there. - She has been speaking with her psychia trist due to increased stress - Patient reports decrease in appetite. - Denies any significant nausea or vomit ing. Reports that she has been occasionally gagging due to crying. - Denies any diarrhea or constipation. Denies any blood in the stool or black tarry stools. - Denies any chest pain or shortness of breath. - Denies current or past history of alco hol use Review of Systems Constitutional: Negative for fevers, chills. Reports appetite change Respiratory: Negative for shortness of breath Cardiac: Negative for chest pain, palpitations Gastrointestinal: Reports abdominal pain. Denies nausea, vomiting, blood in stool, blood in emesis, constipation, diarrhea, black tarry stools Neurological: Negative for dizziness Physical Exam General Appearance: Normal appearance; patient noted to be tearful Head: Normocephalic, atraumatic Cardiac: Regular rate and rhythm. No murmurs noted upon auscultation Pulmonary: No respiratory distress. Speaking in full sentences Abdomen: Normal bowel sounds. Soft and nontender. No epigastric tenderness to palpation. Old, healed surgical scars noted : No CVA tenderness to palpation Musculoskeletal: Moving all extremities spontaneously and against gravity Mental Status: Alert and Oriented x 3 Psychiatric: Anxious mood. Normal affect. PFSH Medical History History of open sigmoidectomy (~2014) Surgical History (Updated 10/08/22 @ 10:58 by Lilliana Fry CMA) H/O right knee surgery History of ankle surgery Social History Patient Tobacco Use Status: Never used Tobacco Current occupational status: disabled Assessment & Plan Assessment & Plan (1) GERD (gastroesophageal reflux disease): Code(s): K21.9 - Gastro-esophageal reflux disease without esophagitis Qualifiers: Esophagitis presence: esophagitis presence not specified Qualified Code(s): K21.9 - Gastro-esophageal reflux disease without esophagitis Plan - Symptoms appear consistent with worsening acid reflux symptoms secondary to stress - Abdomen soft and nontender on physical exam - Low concern for cardiac etiology; EKG not currently available in office and based on history, symptoms appear more consistent with GERD - Initiated treatment with omeprazole 20 mg daily, in addition to continue home famotidine 40 mg daily, for a week to reduce gastric acid production. - Discussed stress management to help with symptoms - Advised to avoid acidic foods such as fruit juices, tomato sauces, coffee, and chocolate, Avoid Motrin, Advil, Ibuprofen at this time - Recommended to drink small sips of fluids frequently throughout the day and eat small frequent soft, bland meals throughout the day - Advised to elevate the head of the bed which can reduce acid reflux while sleeping - If worse, increasing pain, black tarry stools, blood in stool, or vomiting and cant keep food or fluids down, recommended prompt medical evaluation in the ER - Advised to follow up with PCP or GI if no improvement in 5-7 days Medications: New omeprazole 20 mg PO DAILY 7 caps 0RF Coding Level of Care Code Est Pt Level 3 (07113) Diagnoses Gastroesophageal reflux disease, unspecified whether esophagitis present K21.9 Esophagitis presence: esophagitis presence not specified
--- OUTSIDE RECORDS SUMMARY | 2025-03-29 18:20 | XMS_ITS | Encounter Summary ---
Author Organization [facility] Address [address] [employer] [facility] [address] [place] [address] Phone Care Team Providers Care Metal Tank Builder Name Role Phone John Gil MD Primary Care Provider Encounter Details Date Type Department Care Team (Latest Contact Info) Description 07/27/2024 Transcribe Orders [facility] Laboratory [address] [place] [address] Serena Ventura, LEAD MANUFACTURING TECHNICIAN [address] [place] [address] [email or web address] Rectal bleeding (Primary Dx); Diarrhea, unspecified type; [...] STOOL CALPROTECTIN 23 mcg/g [facility]/Kermit [facility] Comment: (NOTE) Reference Range: <50 Normal 50-120 [...] ORD ERABLES Final Result Performing Organization Address City/[facility]/ZIP Co de Phone Number [employer] [address] [place] [address], [facility] [phone] * C. DIFFICILE PCR (07/28/2024 9:00 AM EST) Pathologist [facility] C.DIFFICILE PCR Negative Negative [facility] C.DIFFICILE STRAIN PRESUMPTIVE NEGATIVE PRESUMPTIVE NEGATIVE [facility] Comment:Detection of 027/NAP 1/BI strains of C.difficile is presumptive and is solely for epidemiological purposes and is not intended to guide or monitor treatment of infections. Stool (Stool) 07/28/2024 9:0 0 AM EST 07/28/2024 2:01 PM EST Serena Ventura CNP MICROBIOLOGY - GENERAL ORD ERABLES Final Result Performing Organization Address City/[facility]/ZIP Co de Phone Number [facility] [address] [place] [address] * TSH (07/27/2024 11:46 AM EST) TSH 1.90 0.27 - 4.20 uIU/mL [facility] Blood 07/27/2024 11:4 6 AM EST 07/27/2024 12:20 PM EST us Serena Ventura LEAD MANUFACTURING TECHNICIAN LAB BLOOD ORDERABLES Final Result [address] [address] * (ABNORMAL) Comprehensive metabolic panel (07/27/2024 11:46 AM EST) SODIUM 141 133 - 146 mmol/L [facility] POTASSIUM 4.3 3.3 - 5.1 mmol/L [facility] CHLORIDE 102 96 - 108 mmol/L [facility] CO2 27 21 - 35 mmol/L [facility] BUN 10 6 - 19 mg/dL [facility] CREATININE 0.60 0.5 - 1.5 mg/dL [facility] GLUCOSE 100(H) 70 - 99 mg/dL [facility] ALBUMIN 4.9(H) 3.9 - 4.8 g/dL [facility] TOTAL PROTEIN 7.5 6.5 - 8.0 g/dL [facility] CALCIUM 9.9 8.4 - 10.3 mg/dL [facility] ALKALINE PHOSPHATASE 65 39 - 117 U/L [facility] TOTAL BILIRUBIN 0.4 0.0 - 1.2 mg/dL [facility] AST 33 0 - 37 U/L [facility] ALT 37 0 - 40 U/L [facility] GLOBULIN 2.6 1 - 4.8 g/dL [facility] EGFR 111 >59 mL/min/1.7 3m2 [facility] Comment:Estimated glomerular filtration rate calculated using the CKD-EPI refit equation. ANION GAP 16 10 - 20 mmol/L [facility] Blood 07/27/2024 11:4 6 AM EST 07/27/2024 12:20 PM EST Serena Ventura [facility] LAB BLOOD ORDERABLES Final Result Performing Organization Address City/[facility]/ZIP Co de Phone Number [address] [address] * C-Reactive Protein (07/27/2024 11:46 AM EST) C REACTIVE PROTEIN <3.0 0.0 - 4.0 mg/L [facility] Blood 07/27/2024 11:4 6 AM EST 07/27/2024 12:20 PM EST Serenadominga Abel Lorenzo [facility] LAB BLOOD ORDERABLES Final Result [facility] [address] [place] [address] * (ABNORMAL) CBC and differential (07/27/2024 11:46 AM EST) WBC 10.75 4.00 - 11.00 K/uL [facility] RBC 4.31 4.00 - 5.20 M/uL [facility] HGB 13.4 12.0 - 16.0 g/dL [facility] HCT 39.8 36.0 - 46.0 % [facility] PLT 363 150 - 450 K/uL [facility] MCV 92.3 80.0 - 100.0 fL [facility] MCH 31.1(H) 27.0 - 31.0 pg [facility] MCHC 33.7 32.0 - 36.0 g/dL [facility] RDW 12.1 11.5 - 14.5 % [facility] MPV 8.9 8.4 - 12.0 fL [facility] NRBC 0.00 0.00 /100 WBCs [facility] ABSOLUTE NRBC 0.00 0.00 K/uL [facility] DIFF METHOD Auto [facility] NEUTS 67.1 48.0 - 76.0 % [facility] LYMPHS 26.9 18.0 - 41.0 % [facility] MONOS 4.6 4.0 - 11.0 % [facility] EOS 0.6 0.0 - 5.0 % [facility] BASOS 0.6 0.0 - 1.5 % [facility] Granulocytes, immature (%) 0.2 0.0 - 0.9 % [facility] ABSOLUTE NEUTS 7.23 1.92 - 7.60 K/uL [facility] ABSOLUTE LYMPHS 2.89 0.72 - 4.10 K/uL [facility] ABSOLUTE MONOS 0.49 0.16 - 1.10 K/uL [facility] ABSOLUTE EOS 0.06 0.00 - 0.50 K/uL [facility] ABSOLUTE BASOS 0.06 0.00 - 0.15 K/uL [facility] Granulocytes, immature 0.02 0.00 - 0.09 K/uL [facility] Blood 07/27/2024 11:4 6 AM EST 07/27/2024 12:20 PM EST Serenadominga Nashgerard Ventura [facility] LAB BLOOD ORDERABLES Final Result Performing Organization Address [facility] Co de Phone Number [address] [address] * Immunoglobulin A (07/27/2024 11:46 AM EST) IgA 70 70 - 400 mg/dL [facility] Blood 07/27/2024 11:4 6 AM EST 07/27/2024 12:20 PM EST [facility] BLOOD ORDERABLES Final Result Performing Organization Address [facility] Co de Phone Number [address] [address] * Tissue transglutaminase IgA (07/27/2024 11:46 AM EST) TTG IGA ANTIBODY <1.2 <4.0 (Negative) U/mL [facility] Blood 07/27/2024 11:4 6 AM EST 07/27/2024 12:29 PM EST Serena Ventura [facility] LAB BLOOD ORDERABLES Final Result Performing Organization Address City/[facility]/ZIP Co de Phone Number [facility] [place] [address] [place] [address] documented in this encounter Visit Diagnoses Diagnosis Rectal bleeding- Primary Hemorrhage of rectum and anus Diarrhea, unspecified type Abdominal pain, left lower quadrant Gastroesophageal reflux disease with esophagitis, unspecified whether hemorrhage documented in this encounter Additional Health Concerns Infection Onset Date Last Indicated Resolved Time CDiff-Risk 07/27/2024 07/28/2024 07/28/2024 10:4 9 PM EST documented as of this encounter Care Teams Metal Tank Builder Relationship Specialty Start Date End Date John Gil MD [address] [place] [address] [place] [address] PCP - General Internal Medicine 09/08/23 documented as of this encounter Additional Source Comments The information contained in this document represents components of the legal health record. It is not the complete legal health record.[facility]
--- OUTSIDE RECORDS SUMMARY | 2025-03-29 18:20 | XMS_ITS | Encounter Summary ---
Author Organization [facility] Address [address] [place] [address] Care Team Providers Care All Around Patternmaker Name Role Phone John Gil MD Primary Care Provider [phone] Encounter Details Date Type Department Care Team (Late st Contact Info) Description 08/31/2024 Lab Requisition [facility] - Main Lab [address] [facility] [place] [address] Melissa Warner PA [address] [place] [address] Urinary tract infection, site not specified; Interstitial [...] Urine No growth 09/01/2024 10:40 AM EDT [facility] Urine Urine specimen obtained by clean catch procedure / Unknown 08/31/2024 10:45 AM EDT 08/31/2024 2:40 PM EDT us Melissa [facility] MICROBIOLOGY - GENERAL ORD ERABLES Final Result [facility] LAB [address] [place] [address], documented in this encounter Visit Diagnoses Diagnosis Urinary tract infection, site not specified Interstitial cystitis (chronic) with hematuria documented in this encounter Care Teams All Around Patternmaker Relationship Specialty Start Date End Date John Gil MD [address] [place] [address] Dr Cummings [place], [place] PCP - General Internal Medicine 09/02/15 documented as of this encounter
--- OUTSIDE RECORDS SUMMARY | 2025-03-29 18:20 | XMS_ITS | Clinical Summary ---
Author Organization [facility] Address [address] [place] [address] Care Team Providers Care Guidance Secretary Name Role Phone John Gil MD Primary Care Provider [phone] Social History Tobacco Use Types Packs/Day Years [...] age to complete this topic Care Teams Guidance Secretary Relationship Specialty Start Date End Date John Gil MD [address] [place] [address] Dr [address] [place] [id number] PCP - General Back Filler Operator 03/18/20
--- OUTSIDE RECORDS SUMMARY | 2025-03-29 18:20 | XMS_ITS | Clinical Summary ---
Author Organization [address] Address [address] [place] [phone] Phone Care Team Providers Care Road Cutter Name Role Phone John Gil MD Primary Care Provider [phone] Social History Tobacco Use Types Packs/Day Years [...] Documents on File Type Date Recorded Patient Mailroom Personnel Expl anation Health Care Decision (hx) 10/18/2017 AD WHITE DIRECTIVE Health Care Decision (hx) 10/18/2017 AD WHITE DIRECTIVE Care Teams Road Cutter Relationship Specialty Start Date End Date John Gil MD [address] [place] [address] Dr Cummings [place] PCP - General Internal Medicine 09/02/15
--- OUTSIDE RECORDS SUMMARY | 2025-03-29 18:20 | XMS_ITS | Patient Health Record ---
Author Organization [facility] Address [address] [place] [address] Care Team Providers Care Automobile Insurance Claim Examiner Name Role Phone Steven Mendoza Jr Reason For Referral No Information Plan Of Treatment No Information
--- OUTSIDE RECORDS SUMMARY | 2025-03-29 18:20 | XMS_ITS | Clinical Summary ---
Author Organization [facility] Address [address] [address] Phone Care Team Providers Care Furniture Stainer Name Role Phone John Gil MD Primary Care Provider Allergies Active Allergy Reactions Criticality Noted Date Comments Allergen Hsg-Rcbcq-Rpzrc Bee Anaphylaxis High 2023 Erythromycin 09/20/2023 Lamotrigine [...] patient would be best served seeing a systems analyst regarding the poor digestion of her foods and the feeling of early satiety as well as looser stools. Patient will see her primary care physician for referral to the systems analyst who performed her colonoscopy before she had [...] Medical Devices Not on file Insurance [address] [place] [id number] MEDICARE PART A & B [place] [address] [place] [id number] MEDICARE PART A & [place] & [place] PART A & B [facility] MEDICARE PART A & B [facility] Care Teams Furniture Stainer Relationship Specialty Start Date End Date John Gil MD [address] [place] [address] [place] [address] PCP - General Internal Medicine 09/08/23 Additional Source Comments The information contained in this document represents components of the legal health record. It is not the complete legal health record.[facility]
== END 2025-03-29 16:40 | disposition home or self-care (01) ==
PROVIDERS: PCP Physician Assistant; Visit Provider Family Medicine
DX: K21.9 Gastro-esophageal reflux disease without esophagitis (principal)
CPT/HCPCS: 99213

== ENCOUNTER → 2025-03-29 16:13 | Outpatient (BNVA) | payer MEDICARE, MEDICAID, SELFPAY | PROVIDERS: PCP Physician Assistant; Visit Provider Family Medicine | DX: K21.9 Gastro-esophageal reflux disease without esophagitis (principal) | CPT/HCPCS: 99212 ==

== ENCOUNTER 2025-04-20 10:34 | Outpatient (AMB) | payer MEDICARE, MEDICAID, SELFPAY ==
--- NOTE | 2025-04-20 07:46 | MHC.PC.OV ---
Intake Visit Reasons: 1 month f/u Territory Representative Required: No Accompanied by: Self / Same As Patient Allergies Sulfa (Sulfonamide Antibiotics) (SULFA (SULFONAMIDE ANTIBIOTICS)) Allergy (Intermediate, Verified 03/29/25 16:16) HIVES erythromycin base (Erythromycin Base) Allergy (Mild, Verified 03/29/25 16:16) HIVES lamotrigine (From Lamictal) Allergy (Mild, Verified 03/29/25 16:16) BLISTERS latex (Latex) Allergy (Mild, Verified 03/29/25 16:16) HIVES strawberry (STRAWBERRY) Allergy (Unknown, Verified 03/29/25 16:16) HIVES, TONGUE SWELLS nortriptyline Adverse Reaction (Severe, Verified 03/29/25 16:16) tachycardia Tobacco use date assessed: 04/20/25 Dental Screening Dental Screen Date: 04/20/25 Did you have a dental visit in the last 12 months?: Yes Did you have a dental problem in the last 6 months where you did not have access to dental care?: No [facility] Medical History History of open sigmoidectomy (~2014) Surgical History (Updated 10/08/22 @ 10:58 by Lilliana Fry CMA) H/O right knee surgery History of ankle surgery Social History Patient Tobacco Use Status: Never used Tobacco Current occupational status: disabled Questionnaire PHQ-9 Over the last 2 weeks, how often have you been bothered by any of the following problems? 1. Little interest or pleasure in doing things: not at all 2. Feeling down, depressed, or hopeless: not at all 3. Trouble falling or staying asleep, or sleeping too much: not at all 4. Feeling tired or having little energy: not at all 5. Poor appetite or overeating: not at all 6. Feeling bad about yourself - or that you are a failure or have let yourself or your family down: not at all 7. Trouble concentrating on things, such as reading the newspaper or watching television: not at all 8. Moving or speaking so slowly that other people could have noticed. Or the opposite - being so fidgety or restless that you have been moving around a lot more than usual: not at all 9. Thoughts that you would be better off or of hurting yourself in some way: not at all Total score: 0 Source: Developed by Drs. Gerardo Hoyos, Christine Schwartz, Atul Beckett and colleagues, with an educational jorge from [employer]. Thrive Questionnaire Date Thrive assessed: 04/20/25 I am a: Patient Within the past 12 months, did the food you bought not last and you didn't have the money to get more?: Never true Within the past 12 months, did you worry whether your food would run out before you got money to buy more?: Never true Do you have trouble paying for medicines?: No Do you have trouble getting transportation to medical appointments?: No Do you have trouble paying your heating and electricity bill?: No Do you have trouble taking care of your child, family member or friend?: No Do you have trouble with day-to-day activities such as bathing, preparing meals, shopping, managing finances, etc.?: No Are you currently unemployed and looking for a job?: No Are you interested in more education?: No THRIVE Score: 0 AUDIT C Alcohol Use Questionnaire (AUDIT-C) 1. How often do you have a drink containing alcohol?: Never 3. How often do you have six or more drinks on one occasion?: Never Total Score: 0 ADRIANNE-7 AMB Questionnaire ADRIANNE-7 Date ADRIANNE - 7 assessed: 04/20/25 Feeling nervous, anxious, or on edge: 0 = Not at all Not being able to stop or control worryin = Not at all Worrying too much about different things: 0 = Not at all Trouble relaxin = Not at all Being so restless that it is hard to sit still: 0 = Not at all Becoming easily annoyed or irritable: 0 = Not at all Feeling afraid as if something awful might happen: 0 = Not at all Total ADRIANNE-7 score (0-4 normal; 5-9 mild; 10-14 moderate; 15-21 severe): 0 Source: Developed by Drs. Gerardo Hoyos, Christine Schwartz, Atul Beckett and colleagues, with an educational jorge from [employer]. Physical exam (Primary Care) Tobacco/Smoking Status: Tobacco use Status Tobacco use date assessed 03/21/25 03/29/25 16:11 Patient Tobacco Use Status Never used Tobacco 03/29/25 16:20 Coding
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
[2025-04-20 10:45] VITALS: BP 132/80; PULSE 98; RESP 18; TEMP 36.6; O2SAT 99; BMI 24.7
--- OUTSIDE RECORDS SUMMARY | 2025-04-20 11:19 | XMS_ITS | Encounter Summary ---
Author Organization [facility] Address [address] [place] [address] Care Team Providers Care Parole Or Probation Officer Name Role Phone John Gil MD Primary Care Provider Encounter Details Date Type Department Care Team (Late st Contact Info) Description 08/31/2024 Lab Requisition [facility] - Main Lab [address] [facility] [address] [employer] [place] [address] Melissa Warner PA [address] [place] [address] Urinary tract infection, site not specified; Interstitial [...] Urine No growth 09/01/2024 10:40 AM EDT [facility] Urine Urine specimen obtained by clean catch procedure / Unknown 08/31/2024 10:45 AM EDT 08/31/2024 2:40 PM EDT us Melissa [facility] MICROBIOLOGY - GENERAL ORD ERABLES Final Result [facility] [address] [place] [address], documented in this encounter Visit Diagnoses Diagnosis Urinary tract infection, site not specified Interstitial cystitis (chronic) with hematuria documented in this encounter Care Teams Parole Or Probation Officer Relationship Specialty Start Date End Date John Gil MD [address] [place] [address] Dr Cummings [place], [place] PCP - General Internal Medicine 09/02/15 documented as of this encounter
--- OUTSIDE RECORDS SUMMARY | 2025-04-20 11:19 | XMS_ITS | Patient Health Record ---
Author Organization [facility] Address [address] [place] [phone] Care Team Providers Care Cosmetic Consultant Name Role Phone Steven Mendoza Jr Reason For Referral No Information Plan Of Treatment No Information
--- OUTSIDE RECORDS SUMMARY | 2025-04-20 11:19 | XMS_ITS | Clinical Summary ---
Author Organization [address] Address [address] [place] [phone] Phone Care Team Providers Care Clinical Data Analyst Name Role Phone John Gil MD Primary Care Provider [phone] Social History Tobacco Use Types Packs/Day Years [...] Influencers of Health Screening 09/01/2024 COVID-19 Vaccine ( - 2024-2 6 season) 2025 Influenza Vaccine (#1) 2025 RSV [...] Documents on File Type Date Recorded Patient Docking Pilot Expl anation Health Care Decision (hx) 10/18/2017 AD WHITE DIRECTIVE Health Care Decision (hx) 10/18/2017 AD WHITE DIRECTIVE Care Teams Clinical Data Analyst Relationship Specialty Start Date End Date John Gil MD [address] [place] [address] Dr Cummings [place] PCP - General Internal Medicine 09/02/15
--- OUTSIDE RECORDS SUMMARY | 2025-04-20 11:19 | XMS_ITS | Clinical Summary ---
Author Organization [facility] Address [address] [place] [address] Care Team Providers Care Service Operator Name Role Phone John Gil MD Primary Care Provider [phone] Social History Tobacco Use Types Packs/Day Years [...] age to complete this topic Care Teams Service Operator Relationship Specialty Start Date End Date John Gil MD [address] [place] [address] [address] [place] [address] PCP - General Process Trainer 03/18/20
== END 2025-04-20 11:36 | disposition home or self-care (01) ==
LOC: HO.HMCHD 10:35
PROVIDERS: PCP Internal Medicine; Visit Provider Physician Assistant
DX: F32.9 Major depressive disorder, single episode, unspecified (principal); M54.16 Radiculopathy, lumbar region; G90.50 Complex regional pain syndrome I, unspecified; Z11.3 Encounter for screening for infections with a predominantly sexual mode of transmission; M25.50 Pain in unspecified joint; K27.9 Peptic ulcer, site unspecified, unspecified as acute or chronic, without hemorrhage or perforation

== ENCOUNTER → 2025-04-20 10:34 | Outpatient (BNVA) | payer MEDICARE, MEDICAID, SELFPAY | PROVIDERS: PCP Internal Medicine; Visit Provider Physician Assistant | DX: M54.16 Radiculopathy, lumbar region (principal); G90.50 Complex regional pain syndrome I, unspecified; M25.50 Pain in unspecified joint; K27.9 Peptic ulcer, site unspecified, unspecified as acute or chronic, without hemorrhage or perforation; F32.9 Major depressive disorder, single episode, unspecified; E53.8 Deficiency of other specified B group vitamins; G47.00 Insomnia, unspecified; K29.00 Acute gastritis without bleeding; E78.5 Hyperlipidemia, unspecified | CPT/HCPCS: 99212 ==

== ENCOUNTER 2025-04-23 12:38 | Outpatient (REF) | payer MEDICARE, MEDICAID, SELFPAY | END 2025-04-23 12:39 | disposition home or self-care (01) | LOC: HO.LNP 12:38 | PROVIDERS: Visit Provider Physician Assistant | DX: K27.9 Peptic ulcer, site unspecified, unspecified as acute or chronic, without hemorrhage or perforation (principal) | CPT/HCPCS: 87338 ==